=== PATIENT | male | born 1950 | race Two or more races ===

== ENCOUNTER 2024-03-23 12:56 | Outpatient (REF) | payer MEDICARE, MEDICAID, SELFPAY ==
--- NOTE | ~2024-03-23 | XR_ITS ---
EXAMINATION: XR CHEST CLINICAL INFORMATION: Productive cough. Blood tinged sputum. COMPARISON: 05/25/2019 TECHNIQUE: 2 views of the chest were obtained. FINDINGS: The lungs remain hyperexpanded. Biapical scarring. There is large right perihilar masslike consolidation not present on the previous study. No pleural effusion. Cardiac silhouette is unchanged. XR/XR chest 2V IMPRESSION: Large right perihilar masslike consolidation not present on the previous study. Findings are suspicious for neoplasm. Chest CT with contrast is recommended for further characterization.
== END 2024-03-23 12:57 | disposition home or self-care (01) ==
LOC: HO.HHCX 12:56
PROVIDERS: Visit Provider Nurse Practitioner Family
DX: J45.901 Unspecified asthma with (acute) exacerbation (principal); J41.1 Mucopurulent chronic bronchitis
CPT/HCPCS: 71046

== ENCOUNTER 2024-03-30 13:09 | Outpatient (REF) | payer MEDICARE, SELFPAY ==
[2024-03-30 16:08] LABS: Basophils Absolute Auto 0.1 X10*3/uL (0.0-0.2); Basophils Percent Auto 0.3 % (0-2); Hematocrit 29.9 % (42.0-52.0); Hemoglobin 9.6 g/dl (14.0-18.0); Imm Gran Abs Auto 0.49 X10*3/uL (0.00-0.03); Imm Gran Pct Auto 1.4 % (0.0-0.4); Lymphocytes Absolute Auto 1.3 X10*3/uL (1.2-4.9); Lymphocytes Percent Auto 3.9 % (20-40); MANUAL DIFF FLAG SCAN; Mean Corpuscular HGB Conc 32.1 g/dl (31.0-36.0); Mean Corpuscular Hemoglobin 29.5 pg (27.0-33.0); Mean Platelet Volume 8.9 fL (9.4-12.4); Monocytes Absolute Auto 1.5 X10*3/uL (0.1-1.2); Monocytes Percent Auto 4.3 % (2-11); Neutrophils Absolute Auto 30.7 x10*3/uL (2.0-8.3); Neutrophils Percent Auto 90.1 % (45-73); Platelet Count 555 X10*3/uL (160-400); Red Blood Count 3.25 X10*6/uL (4.60-5.80); Red Cell Distribution Width 13.8 % (11.0-16.0); SCAN SMEAR FLAG 1
[2024-03-30 16:24] LABS: Alanine Aminotransferase 32 U/L (0-40); Albumin Level 2.8 g/dL (3.5-5.0); Alkaline Phosphatase 56 U/L (39-117); Anion Gap 18 (12-20); Aspartate Amino Transferase 30 U/L (5-37); Blood Urea Nitrogen 24 mg/dL (9-16); Calcium 8.7 mg/dL (8.4-10.2); Carbon Dioxide 25 mmol/L (22-29); Chloride 98 mmol/L (96-108); Estimated Glomerular Filt Rate > 60; Glucose Random 195 mg/dL (60-115); Potassium 3.8 mmol/L (3.3-5.1); Sodium 137 mmol/L (135-145); Total Protein 6.5 g/dL (6.5-8.0)
[2024-03-30 16:31] LABS: White Blood Count 34.1 X10*3/uL (4.8-10.8)
[2024-03-30 16:48] LABS: SLIDE REVIEW VERIFIED
[2024-03-30 16:55] LABS: Prostate Specific Antigen 12.83 ng/mL (<0.05-4.0)
== END 2024-03-30 13:10 | disposition home or self-care (01) ==
LOC: HO.HHCL 13:09
PROVIDERS: Visit Provider Internal Medicine Geriatric Medicine
DX: Z13.89 Encounter for screening for other disorder (principal)
CPT/HCPCS: 36415; 80053; 84153; 85025

== ENCOUNTER 2024-03-30 17:39 | Inpatient (IN) | payer MEDICARE, MEDICAID, SELFPAY ==
--- NOTE | ~2024-03-30 | XR_ITS ---
EXAMINATION: XR CHEST CLINICAL INFORMATION: Pneumonia. COMPARISON: 04/04/2024, CT 03/30/2024, chest 03/23/2000. TECHNIQUE: Frontal view of the chest was obtained. FINDINGS: There is no gross pneumothorax. Persistent asymmetric right apical pleural thickening. Heart size is normal. Persistent small right pleural effusion. Persistent patchy opacities in the right lung, predominantly in the right perihilar region and [id number] right lung. There may be a few patchy opacities in the left perihilar region. XR/XR chest 1V IMPRESSION: 1. Persistent, similar patchy opacities in the right lung, predominantly in the right perihilar region and [id number] right lung. There may be a few patchy opacities in the left perihilar region. 2. Persistent, similar small right pleural effusion. This study was presented today April 06, 2024 for interpretation. Stat results provided at this time as requested by referring provider.
--- NOTE | ~2024-03-30 | CT_ITS ---
EXAMINATION: CT CHEST WITH CONTRAST CLINICAL INFORMATION: Lung mass on prior chest radiograph COMPARISON: Chest radiograph 03/23/2024 TECHNIQUE: Multidetector volumetric CT imaging of the chest was obtained after the administration of 65 mL of Omnipaque 350 intravenous contrast without immediate adverse reactions. Axial MIP volume rendering provided. Sagittal and coronal reformatted images were obtained. This CT examination was performed using dose optimization techniques as appropriate, variously including the following: *Automated exposure control *Adjustment of mA and/or kV according to patient size (this includes techniques or standardized protocols for targeted exams where dose is matched to indication/reason for exam; i.e. extremities or head) *Use of iterative reconstruction technique DLP: 201 mGy-cm FINDINGS: LUNGS: Marked emphysematous changes are present throughout the lungs. Marked subpleural cystic changes are seen predominantly in the upper lobes there is one area of cyst thickening in the left upper lobe anteriorly (5:152). There are large multifocal areas of consolidation seen in the right lower lobe with associated marked bronchial thickening. There is cavitary area seen posterolaterally measuring 2.8 2.7 x 3 0.1 mL (5:241 and 7:78). Number of smaller nodular densities are seen including some tree-in-bud opacities. There is an area of masslike infiltrate present in the left upper lobe measuring 1.6 x 0.7 x 1.2 cm (5:181 and 6:27). Scattered pulmonary nodules are seen some related to bronchial is mucosal mucoid impaction with the largest nodule measuring 1 cm in the right middle lobe anterior to the major fissure (5:270 and 7:84). MEDIASTINUM: There is a large precarinal lymph node present measuring 3.0 x 2.1 x 3.7 cm (3:24 and 7:61). Some other smaller perihilar lymph nodes are present. There is encasement of the right mainstem bronchus by abnormal soft tissue mass measuring 4.2 x 2.2 x 2.0 cm (3:28 and 6:48). Marked coronary calcium is present. PLEURA: There is no pleural effusion. No pleural mass or thickening. AXILLA: No lymphadenopathy. UPPER ABDOMEN: A large right extrarenal pelvis is partially imaged. No adrenal masses are seen. No evidence of hepatic metastases. OSSEOUS STRUCTURES: No evidence of bony metastatic disease. CT/CT chest w IV con IMPRESSION: 1. Marked emphysematous changes with soft tissue mass encasing the right mainstem bronchus with associated mediastinal and hilar lymph nodes. There are associated multifocal areas of consolidation in the right lower lobe with associated bronchial thickening and a cavitary area. There is also a masslike area of infiltrate in the left upper lobe. Findings are worrisome for malignancy as well as infection. Pulmonary consultation and bronchoscopy recommended. 2. Other incidental findings as described above. Fleischner guidelines were followed. This critical result was discussed with Dr Sanon at 9:30 PM on the evening of the exam and it was ascertained that the content and urgency of the report was understood at the time of direct communication.
--- NOTE | ~2024-03-30 | XR_ITS ---
EXAMINATION: XR CHEST CLINICAL INFORMATION: Pneumonia. COMPARISON: CT 03/30/2024, chest 03/23/2024. TECHNIQUE: 3 views of the chest were obtained. FINDINGS: The lungs remain hyperinflated with biapical pleural thickening, greater on the right. Heart size is normal. Increased patchy and hazy opacities in the right perihilar and infrahilar region with volume loss in the right hemithorax. Small right pleural effusion. Increased tenting and irregularity of the right hemidiaphragm with mild asymmetric elevation. There is no gross pneumothorax. Mild degenerative changes in the thoracic spine. XR/XR chest 2V IMPRESSION: Increased patchy and hazy opacities in the right perihilar and infrahilar region with volume loss in the right hemithorax. Small right pleural effusion. This study was presented today April 06, 2024 for interpretation. Stat results provided at this time as requested by referring provider.
--- NOTE | 2024-03-30 18:00 | ED_ITS ---
HPI - General Adult General Chief complaint: Recheck/Abnormal Lab/Rx Stated complaint: needs antibiotics Time Seen by Provider: 03/30/24 18:27 History of Present Illness ED Provider: Talita LARA narrative: The patient is a 73-year-old male who was recently seen at the [facility] because he has had a 20 lb unintentional weight loss over the last several months. He has had coughing and occasional hemoptysis as well. He had an outpatient chest x-ray 1 week ago that showed a right lung mass concerning for a possible malignancy. Today he [place] [address], hemoglobin of 9.6, a platelet count of 555. He had a PSA of 12.8. The patient was advised to come to the emergency room by his primary care doctor after his abnormal white count was reviewed today. The patient says that he has had a weight loss and occasional coughing. He has been sleeping poorly. He does not think he has had a fever. No abdominal pain, nausea, vomiting. The patient says that he had been coughing up blood-tinged sputum quite a lot a couple of weeks ago. However over the last several days the amount of blood that seems to be coming up considerably less. He does not feel he is coughing up much blood currently. The patient stopped smoking approximately 2 weeks ago. He has been a smoker most of his adult life. Related Data Allergies Allergy/AdvReac Type Severity Reaction Status Date / Time No Known Allergies Allergy Verified 03/30/24 18:06 Review of Systems 2 Review of Systems: Yes all other systems are reviewed and are negative [facility] Social History Social History Smoked in Last 30 Days: Yes Advance Directives: No Advance Directives Information Provided: No Do you have a plan to hurt others: No Plan Physical Exam ED Vital Signs: Vital Signs - 24 hr 03/30/24 18:05 Temperature 98.4 F Pulse Rate 87 Respiratory Rate 18 Blood Pressure 120/47 L Pulse Oximetry 94 Oxygen Delivery Method Room Air BMI result Body Mass Index 19.9 Const Other: The patient is a slim 73-year-old man who was awake and alert. He has a frail appearance. He does not look obviously acutely ill however. No respiratory distress. HENMT Other: Face is symmetrical. Mucous membranes moist. Eyes Other: Pupils are round equal, conjunctivae are clear Neck Other: No cervical adenopathy, no JVD Resp Effort & Inspection: normal respiratory effort Auscultation: clear to auscultation bilaterally Cardio Rate: regular rate Rhythm: regular rhythm Heart sounds: S1 normal heart sound present and S2 normal heart sound present GI Other: Abdomen is soft and nontender, no masses Skin Other: The skin is dry and unremarkable Neuro Other: The patient is awake and alert with a normal mental status. Cranial nerves are grossly intact. He moves his extremities normally and seems grossly neurologically intact. Extrem Other: No calf swelling or tenderness. Course Course Course Narrative: This is an RME: Additional HPI, ROS, PE not included below will be deferred to primary provider. RME assessment and note performed by: Vijaya Gutiérrez PA-C This is a [id number], with no known medical problems, who presents to the ER today per recommendations from [facility]. He has had 1 month of hemoptysis, 25 lb weight loss. Had outpatient labs today and found to have leukocytosis of 34.1; drop in H&H of 9.6/29.9. Had cxr on 03/23 which showed right perihilar masslike consolidation not present on the previous. He was encarcerated in 1993 and 1994. No hx of homelessness He was born in [place], last traveled in 2000 in [place] Plan: Labs, EKG, further ER eval needed. informed charge nurse to bring pt back Medications Administered Discontinued Medications Generic Name Dose Route Start Last Admin Trade Name Freq PRN Reason Stop Dose Admin Sodium Chloride 1,000 mls @ 999 mls/hr 03/30/24 18:45 03/30/24 20:48 Ns IV 03/30/24 19:45 Infused .Q1H1M YRN Infusion Iohexol 100 ml 03/30/24 20:24 03/30/24 20:25 Iohexol 350 Mg/Ml 100 Ml Infus..Btl IV 03/30/24 20:25 65 ml ONCE ONE Administration Medical Decision Making Medical Decision Making MDM Narrative: The patient is a 73-year-old male with a long history of smoking who presents with a history of progressive unintentional weight loss over several months associated with episodes of blood-tinged sputum over the last month. He had an outpatient chest x-ray last week that showed significant right lung abnormalities. Today he had outpatient labs that showed a significantly high white count and was referred to the emergency room. He presents today hemodynamically stable and in no respiratory distress. He says that he has exertional dyspnea but no dyspnea at rest. He says he has been coughing up very little in the way of blood in the last several days. He has not had fevers. A CT of the chest shows findings suggestive of a lung malignancy associated with signs of associated infection including a cavitary lesion. I spoke with the reading radiologist who felt that this looks much more like a postobstructive type pneumonia associated with the tumor rather than tuberculosis. The patient will be started on IV antibiotics. Although he has a high white count he is afebrile and not tachycardic. He is hemodynamically stable. His lactate is 1.9. He does not seem to be acutely septic. He has been started on piperacillin/tazobactam and vancomycin. He will be given IV fluids. He will be admitted to the hospitalist service for ongoing care and a pulmonology consult. Lab Data 03/30/24 18:55 03/30/24 18:55 Labs: Lab Results 03/30/24 Range/Units 18:55 WBC 29.5 H (4.8-10.8) X10*3/uL RBC 3.24 L (4.60-5.80) X10*6/uL Hgb 9.6 L (14.0-18.0) g/dl Hct 28.9 L (42.0-52.0) % MCV 89.2 (80.0-98.0) fL MCH 29.6 (27.0-33.0) pg MCHC 33.2 (31.0-36.0) g/dl RDW 13.8 (11.0-16.0) % Plt Count 461 H (160-400) X10*3/uL MPV 8.3 L (9.4-12.4) fL Immature Gran % (Auto) 1.1 H (0.0-0.4) % Neut % (Auto) 87.5 H (45-73) % Lymph % (Auto) 5.8 L (20-40) % [place] % (Auto) 5.5 (2-11) % Eos % (Auto) 0.0 (0-4) % Baso % (Auto) 0.1 (0-2) % Lymph # (Auto) 1.7 (1.2-4.9) X10*3/uL [place] # (Auto) 1.6 H (0.1-1.2) X10*3/uL Eos # (Auto) 0.0 (0.0-0.4) X10*3/uL Baso # (Auto) 0.0 (0.0-0.2) X10*3/uL Abs Immat Gran (auto) 0.31 H (0.00-0.03) X10*3/uL Absolute Neuts (auto) 25.8 H (2.0-8.3) x10*3/uL Absolute Nucleated RBC 0.000 (0.0-0.012) X10*3/uL Nucleated RBC % (auto) 0.0 (0.0-0.2) /100WBC Sodium 137 (135-145) mmol/L Potassium 3.5 (3.3-5.1) mmol/L Chloride 99 (96-108) mmol/L Carbon Dioxide 26 (22-29) mmol/L Anion Gap 16 (12-20) BUN 27 H (9-16) mg/dL Creatinine 1.07 (0.5-1.4) mg/dL Estim Creat Clear Calc 49.3 Estimated GFR > 60 Random Glucose 135 H (60-115) mg/dL Lactic Acid 1.9 (0.5-2.0) mmol/L Calcium 8.7 (8.4-10.2) mg/dL Total Bilirubin 1.0 (0.0-1.0) mg/dL Direct Bilirubin 0.5 (0.0-0.5) mg/dL AST 24 (5-37) U/L ALT 30 (0-40) U/L Alkaline Phosphatase 57 (39-117) U/L Troponin I High Sens 23.6 (<3.5-35.0) ng/L C-Reactive Protein 28.25 H (< or = 0.50) mg/dL Total Protein 6.6 (6.5-8.0) g/dL Albumin 2.9 L (3.5-5.0) g/dL Procalcitonin 0.71 ng/mL Influenza Type A (PCR) NEGATIVE (Negative) Influenza Type B (PCR) NEGATIVE (Negative) RSV RNA Qual (PCR) NEGATIVE (Negative) SARS-CoV-2 RNA (RT-PCR) NEGATIVE (Negative) Independent Interpretation I performed an independent interpretation of an: EKG Interpretation: EKG at 18:35 shows sinus tachycardia with premature supraventricular complexes at 106 beats per minute. No definite acute ischemic changes. Critical Care Time Critical Care Time Critical Care Time: Yes Total Critical Care Time: 35 Attestation: The patient was critically ill with a high probability of imminent or life- threatening deterioration. ?I spent greater than 30 minutes of discontinuous time evaluating the patient, delivering critical care at the bedside, discussing evaluating data with consultants. ?Critical care time does not include time spent performing separately billable procedures or teaching. ?Time spent performing critical care with 35 minutes. Discharge Plan Discharge Patient Disposition: Admitted As Inpatient Print Language: Indonesian
[2024-03-30 18:05] VITALS: BP 120/47; PULSE 87; RESP 18; TEMP 36.9; O2SAT 94; BMI 19.9
--- NOTE | 2024-03-30 18:09 | ECG_ITS ---
Test Reason : SOB Blood Pressure : / mmHG Vent. Rate : 106 BPM Atrial Rate : 122 BPM P-R Int : 138 ms QRS Dur : 090 ms QT Int : 354 ms P-R-T Axes : 081 059 065 degrees QTc Int : 470 ms Sinus tachycardia with Premature supraventricular complexes Nonspecific T wave abnormality Abnormal ECG No previous ECGs available Referred By: Vijaya Gutiérrez Electronically Signed By:Stone Rowley
[2024-03-30 19:03] LABS: Basophils Percent Auto 0.1 % (0-2); Hematocrit 28.9 % (42.0-52.0); Hemoglobin 9.6 g/dl (14.0-18.0); Imm Gran Abs Auto 0.31 X10*3/uL (0.00-0.03); Imm Gran Pct Auto 1.1 % (0.0-0.4); Lymphocytes Absolute Auto 1.7 X10*3/uL (1.2-4.9); Lymphocytes Percent Auto 5.8 % (20-40); MANUAL DIFF FLAG SCAN; Mean Corpuscular HGB Conc 33.2 g/dl (31.0-36.0); Mean Corpuscular Hemoglobin 29.6 pg (27.0-33.0); Mean Corpuscular Volume 89.2 fL (80.0-98.0); Mean Platelet Volume 8.3 fL (9.4-12.4); Monocytes Absolute Auto 1.6 X10*3/uL (0.1-1.2); Monocytes Percent Auto 5.5 % (2-11); Neutrophils Absolute Auto 25.8 x10*3/uL (2.0-8.3); Neutrophils Percent Auto 87.5 % (45-73); Platelet Count 461 X10*3/uL (160-400); Red Blood Count 3.24 X10*6/uL (4.60-5.80); Red Cell Distribution Width 13.8 % (11.0-16.0); SCAN SMEAR FLAG 1; White Blood Count 29.5 X10*3/uL (4.8-10.8)
[2024-03-30 19:12] LABS: Lactic Acid 1.9 mmol/L (0.5-2.0)
[2024-03-30 19:17] LABS: Alanine Aminotransferase 30 U/L (0-40); Albumin Level 2.9 g/dL (3.5-5.0); Alkaline Phosphatase 57 U/L (39-117); Anion Gap 16 (12-20); Aspartate Amino Transferase 24 U/L (5-37); Bilirubin Direct 0.5 mg/dL (0.0-0.5); Blood Urea Nitrogen 27 mg/dL (9-16); Calcium 8.7 mg/dL (8.4-10.2); Carbon Dioxide 26 mmol/L (22-29); Chloride 99 mmol/L (96-108); Creatinine Clr Calc Pharmacy 49.3; Estimated Glomerular Filt Rate > 60; Glucose Random 135 mg/dL (60-115); Potassium 3.5 mmol/L (3.3-5.1); Sodium 137 mmol/L (135-145); Total Protein 6.6 g/dL (6.5-8.0)
[2024-03-30 19:24] LABS: Troponin-I High Sensitivity 23.6 ng/L (<3.5-35.0)
[2024-03-30 19:40] LABS: Influenza A PCR NEGATIVE (Negative); Influenza B PCR NEGATIVE (Negative); Resp Syncy Virus RNA Qual PCR NEGATIVE (Negative); SARS COV2 PCR INHOUSE NEGATIVE (Negative)
[2024-03-30 19:41] LABS: C Reactive Protein 28.25 mg/dL (< or = 0.50)
[2024-03-30] MEDS: 0.9 % Sodium Chloride 1,000 ML 999 ML IV ×2 (19:42→22:32)
[2024-03-30 20:00] VITALS: BP 118/52; PULSE 85; RESP 17; TEMP 37.3; O2SAT 96
[2024-03-30 20:20] LABS: Procalcitonin 0.71 ng/mL
[2024-03-30] MEDS: iohexoL 350 MG/ML 100 ML INFUS..BTL IV (20:25)
[2024-03-30 22:18] VITALS: BP 118/49; PULSE 99; RESP 18; O2SAT 95
[2024-03-30] MEDS: Piperacillin Sodium/Tazobactam 4.5 GM in 0.9 % Sodium Chloride 100 ML IV (22:31)
[2024-03-30] MEDS: vancomycin HCL 1,500 MG in 0.9 % Sodium Chloride 500 ML 333.33 MG IV (22:38)
--- NOTE | 2024-03-30 22:44 | P.HPHOSP_ITS ---
History of Present Illness Date of Service: 03/30/24 Attending physician on admission: Linnea Cox Chief Complaint: Shortness of breath Herman Sprague is a 73 years old man with past medical history significant for hypertension, COPD -not home O2 and hyperlipidemia presents to the emergency department complaining of 1 month history of shortness on breath that is worse on exertion associated with productive cough of blood-tinged sputum. He denies chest pain, headache, sore throat, fevers or chills. He reported weight loss, 20 lb over the last year and very poor appetite. Denied any acute gastrointestinal or genitourinary symptoms. He is a tobacco smoker since age 11, 1 per day -stopped smoking 2 weeks ago. He smokes marijuana as well and drinks alcohol occasionally. Denies illicit drug use. Denies history of TB, IV drug use, STDs, contact with sick people or incarceration as well as recent travel history. In the ED, he was found to have stable vital signs. Blood workup today showed leukocytosis of 34.1, hemoglobin of 9.6 and thrombocytosis of 555 with monocytosis. CRP is 28.93 and normal procalcitonin. There are no significant electrolyte imbalances. Creatinine is 1.07 and BUN 27. Troponin is 23.6. PSAs 12.83. Viral testing for COVID-19, influenza and RSV is negative. He underwent a chest CTA with IV contrast that showed marked emphysematous changes with soft tissue mass encasing the right mainstem bronchus with associated mediastinal and hilar lymph nodes with associated multifocal areas of consolidation in the right lower lobe with associated bronchial thickening and cavitary area, masslike area of infiltrate in the left upper lobe which is worrisome for malignancy as well as infection. ECG showed sinus tachycardia, heart rate 106 bpm with PVCs. ED tx: NS 1 L bolus, Zosyn 4.5 g IV and vancomycin 1.5 mg Review of Systems 2 Review of Systems: All 12 systems were reviewed and normal except as noted in HPI. [facility] Medical History Smoker COPD (chronic obstructive pulmonary disease) Tobacco dependence Hyperlipidemia BPH (benign prostatic hyperplasia) Essential hypertension Social History Household Members: None Housing: Apartment Do you presently have visiting nurse or other home services: No Patient Tobacco Use Status: Former Tobacco user Tobacco use type: Cigarette Smoked in Last 30 Days: Yes Patient Interested in Nicotine Replacement: No Patient Given Instructions on How to Stop Smoking: No Second Hand Smoke Exposure: No Use of substances other than those prescribed or required for medical reasons: No Currently Displaying Signs/Symptoms of Drug Intoxication Withdrawal: No Have you been hit, kicked, punched, or otherwise hurt by someone within the past year? If so, by whom?: No Do you feel safe in your current relationship?: No Current Relationship Is there a partner from a previous relationship who is making you feel unsafe now?: No Are you made to feel afraid or neglected: No Advance Directives: No Advance Directives Information Provided: No Do you have a plan to hurt others: No Plan Recently lost weight without trying: Yes How much weight loss: 14-23 pounds Eating poorly because of decreased appetite: No Nutrition screen score: 4 Nutrition Risks: No Nutritional Risk Poor oral hygiene: No service: No Meds Allergies Allergy/AdvReac Type Severity Reaction Status Date / Time No Known Allergies Allergy Verified 03/30/24 18:06 Active Medications: Current Medications Acetaminophen (Acetaminophen 325 Mg Tablet) 975 mg PO Q6H PRN PRN Reason: Pain, Mild (Pain Scale 1-3), fever or headache Calcium Carbonate (Calcium Carbonate 750 Mg Tab.Chew) 750 mg PO Q4H PRN PRN Reason: Heartburn Vancomycin HCl 1,500 mg/ (Sodium Chloride) 500 mls @ 333.333 mls/hr IV ONCE ONE Stop: 03/30/24 23:13 Last Admin: 03/30/24 22:38 Dose: 333.33 mls/hr Sodium Chloride (Ns) 1,000 mls @ 999 mls/hr IV .Q1H1M YRN Stop: 03/30/24 23:00 Last Admin: 03/30/24 22:32 Dose: 999 mls/hr Piperacillin Sod/Tazobactam (Sod 3.375 gm/ Sodium Chloride) 50 mls @ 100 mls/hr IV Q6H YRN Lactated Ringer's (Lr) 1,000 mls @ 100 mls/hr IVCONT .Q10H YRN Magnesium Hydroxide (Milk Of Magnesia 30 Ml Oral.Susp) 30 ml PO DAILY PRN PRN Reason: Constipation Melatonin (Melatonin 3 Mg Tablet) 6 mg PO BEDTIME PRN PRN Reason: Insomnia Sodium Chloride (0.9 % Sodium Chloride Flush 3 Ml Syringe) 3 ml IVFLUSH QSHIFT [facility] Home Medications ?Medication ?Instructions ?Recorded ?Confirmed ?Last Taken ?Type albuterol sulfate 90 mcg/actuation 2 inh inhalation Q6H PRN dyspnea 03/31/24 03/31/24 Unknown History aerosol inhaler atorvastatin 40 mg tablet 40 mg PO BEDTIME 03/31/24 03/31/24 03/30/24 History fluticasone furoate 100 1 ea inhalation DAILY 03/31/24 03/31/24 Unknown History mcg-vilanterol 25 mcg/dose inhalation powder (Breo Ellipta) Physical Exam 2 Vital Signs and Narrative: Vital Signs: Last Vital Signs Temp 99.2 F 03/30/24 20:00 Pulse 99 03/30/24 22:18 Resp 18 03/30/24 22:18 BP 118/49 L 03/30/24 22:18 Pulse Ox 95 03/30/24 22:18 O2 Del Method Room Air 03/30/24 22:18 BMI result Body Mass Index 19.9 Constitutional - Awake and Alert, No apparent distress. Malnourished. Pleasant. Cooperative. HEENT - PERRL, EOMI. Normal oropharynx. Normal sclerae. Moist oral mucosa. Heart - RRR, extra beats, no murmurs. Lungs - Normal lung expansion, Normal respiratory effort, No respiratory distress. Occasional end expiratory wheezes. No rhonchi. No crackles. Abdomen - NT / ND; +BS; No rebound or guarding Extremities - no calf tenderness bilaterally, no swelling Skin - Warm/Dry Neurological - Alert & oriented x3. No focal weakness grossly noted. Normal speech. Psychological - Appropriate affect Results Labs 04/01/24 05:35 04/01/24 05:35 Labs: Laboratory Results - last 24 hr 03/30/24 18:55 MCV 89.2 MCH 29.6 MCHC 33.2 RDW 13.8 Plt Count 461 H MPV 8.3 L Immature Gran % (Auto) 1.1 H Neut % (Auto) 87.5 H Lymph % (Auto) 5.8 L [place] % (Auto) 5.5 Eos % (Auto) 0.0 Baso % (Auto) 0.1 Lymph # (Auto) 1.7 [place] # (Auto) 1.6 H Eos # (Auto) 0.0 Baso # (Auto) 0.0 Abs Immat Gran (auto) 0.31 H Absolute Neuts (auto) 25.8 H Absolute Nucleated RBC 0.000 Nucleated RBC % (auto) 0.0 Anion Gap 16 Estim Creat Clear Calc 49.3 Estimated GFR > 60 Random Glucose 135 H Lactic Acid 1.9 Calcium 8.7 Total Bilirubin 1.0 Direct Bilirubin 0.5 AST 24 ALT 30 Alkaline Phosphatase 57 Troponin I High Sens 23.6 C-Reactive Protein 28.25 H Total Protein 6.6 Albumin 2.9 L Procalcitonin 0.71 Influenza Type A (PCR) NEGATIVE Influenza Type B (PCR) NEGATIVE RSV RNA Qual (PCR) NEGATIVE SARS-CoV-2 RNA (RT-PCR) NEGATIVE Imaging Radiologist's Impressions: Impressions Chest CT 03/30/24 20:27 IMPRESSION: 1. Marked emphysematous changes with soft tissue mass encasing the right mainstem bronchus with associated mediastinal and hilar lymph nodes. There are associated multifocal areas of consolidation in the right lower lobe with associated bronchial thickening and a cavitary area. There is also a masslike area of infiltrate in the left upper lobe. Findings are worrisome for malignancy as well as infection. Pulmonary consultation and bronchoscopy recommended. 2. Other incidental findings as described above. Fleischner guidelines were followed. This critical result was discussed with Dr Sanon at 9:30 PM on the evening of the exam and it was ascertained that the content and urgency of the report was understood at the time of direct communication. Assessment and Plan (1) Weight loss: Status: Acute (2) Cavitating mass in right lower lung lobe: Status: Acute (3) Pneumonia involving right lung: Qualifiers: Lung location: lower lobe of lung Pneumonia type: due to unspecified organism Qualified Code(s): J18.9 - Pneumonia, unspecified organism Status: Acute Plan Herman Sprague is a 73 y/o man admitted with: * Exertional shortness of breath and hemoptysis likely secondary to right lower lobe consolidations associated with bronchial thickening and a cavitary area + left upper lobe masslike area/infiltrate concerning for malignancy and/or postobstructive pneumonia or abscesses.. Admit to hospitalist service. Pulse oximetry. Airborne precautions. Continue empiric IV antibiotic therapy with Zosyn. Bronchodilator therapy as needed/inhalers. Check sputum cultures, AFB X3 (however, low suspiction for TB) and HIV. Check TTE to assess for endocarditis. Swallow eval. Hold aspirin. Pulmonology and ID consults. * Leukocytosis likely secondary to above. Continue empiric IV antibiotic therapy and IV fluids. Blood cultures X2 obtained. Will follow results. * COPD. Not in acute exacerbation. Supplemental oxygen and/or bronchodilator therapy as needed. * Tobacco dependence. Last time he smoked was 2 weeks ago. Tobacco cessation education. * Elevated PSA. Check urinalysis. Urology consult. * Hyperlipidemia. Continue atorvastatin. * Essential hypertension. Continue lisinopril, amlodipine and metoprolol. * BPH. Continue tamsulosin. * Protein calorie malnutrition. BMI 19.9 kg/m2. Dietary consult. DVT prophylaxis: SCDs only (pt c/o hemoptysis). Code status: Full Patient will need hospitalization for at least 2 midnights for hemoptysis, pneumonia and suspected malignancy management and treatment with IV antibiotic therapy, close monitoring of vital signs, further blood/sputum workup and evaluation by subspecialty for possible bronchoscopy. Quality Stroke Does the patient have a stroke diagnosis?: No VTE Prior VTE?: No VTE Risk Level:: Medical - moderate - high VTE Device Contraindication: N/A - Device Ordered VTE Drug Contraindication: Treatment Not Indicated
[2024-03-31] VITALS (10 sets, daily range): BP systolic 111–158; BP diastolic 50–63; PULSE 68–99; RESP 16–19; TEMP 36.1–37.8; O2SAT 92–96; BMI 20.7
[2024-03-31] MEDS: Lactated Ringers 1,000 ML 100 ML IVCONT ×2 (00:34→12:13)
[2024-03-31] MEDS: Acetaminophen 325 MG TABLET 975 MG PO (02:25)
[2024-03-31] MEDS: Piperacillin Sodium/Tazobactam 3.375 GM in 0.9 % Sodium Chloride 50 ML IV ×3 (05:34→18:14)
[2024-03-31 06:13] LABS: Hematocrit 26.3 % (42.0-52.0); Hemoglobin 8.8 g/dl (14.0-18.0); Mean Corpuscular HGB Conc 33.5 g/dl (31.0-36.0); Mean Corpuscular Hemoglobin 30.1 pg (27.0-33.0); Mean Corpuscular Volume 90.1 fL (80.0-98.0); Mean Platelet Volume 8.9 fL (9.4-12.4); Platelet Count 415 X10*3/uL (160-400); Red Blood Count 2.92 X10*6/uL (4.60-5.80); Red Cell Distribution Width 13.9 % (11.0-16.0); White Blood Count 27.8 X10*3/uL (4.8-10.8)
[2024-03-31 06:33] LABS: B Type Natriuretic Peptide 207 pg/mL (<100)
--- NOTE | 2024-03-31 07:00 | CA_ITS ---
Transthoracic Echocardiogram Patient (Last, First, Middle): Herman Sprague, Gender: Male Date of : 1950 Age: 73 Procedure Date: 03/31/2024 Procedure Type: Transthoracic Echocardiogram Location: S3W Height: 170.18 cm Weight: 59.88 kg BSA: 1.69 m2 Heart Rate: bpm BP: 158 / 61 mmHg Top Trimmer: ALONSO Referring MD: Linnea Cox MD Symptoms: RLL multiple consolidation, assess for endocarditi Study Quality: Adequate Conclusions: - Normal left ventricular size, thickness, systolic function, and wall motion. The visually estimated ejection fraction is between 60-65%. Diastolic function is indeterminate on the basis of available data. - Normal right ventricular cavity size and systolic function. - No significant valvular pathology noted. Findings Left Ventricle Normal left ventricular size, thickness, systolic function, and wall motion. The visually estimated ejection fraction is between 60-65%. Diastolic function is indeterminate on the basis of available data. Right Ventricle Normal right ventricular cavity size and systolic function. Atria The left atrium is mildly dilated. Aortic Valve There is a normal trileaflet aortic valve. There is mild calcification of the aortic valve. There is no aortic valve stenosis. There is no aortic valve regurgitation. Mitral Valve Normal mitral valve structure and function. There is no mitral valve regurgitation. There is no mitral valve stenosis. Pulmonic Valve The pulmonic valve is normal. There is no pulmonic valve regurgitation. Tricuspid Valve Normal tricuspid valve structure. There is trace tricuspid valve regurgitation. Normal right atrial pressure. There is no evidence of pulmonary hypertension. Great Vessels All visible segments of the aorta are normal in size. The visualized portions of the pulmonary artery and branches are normal. Venous The inferior vena cava is normal in size and collapses greater than 50% with inspiration. Pericardium/Pleural There is no evidence of pericardial effusion. Prior Study Comparison No prior study available for comparison. Measurements 2D Linear Measurements IVSd: 1.00 0.6-0.9/0.6-1.0 cm LVIDd: 4.46 3.9-5.3/4.2-5.9 cm LVIDd Index: 2.64 2.4-3.2/2.2-3.1 cm/m2 LVIDs: 2.97 2.0-3.6 cm LVPWd: 0.97 0.7-1.1 cm LA Diam: 3.10 2.7-3.8/3.0-4.0 cm LAIDs Index: 1.83 1.5-2.3 cm/m2 LV Mass: 184.35 67-162/88-224 g LV Mass Index: 109.08 43-95/49-115 g/m2 LVOT Diam: 2.20 3.0+(-)1.3 cm 2D Systolic Function EF 4C: 61.60 >55% EF 2C: 59.30 >55% EF BiP: 61.20 >55% Mitral Valve MV Pk E: 0.87 MV PK A: 0.94 MV Decel Time: 269.00 E/A: 0.90 E'Lateral: 11.10 E'Medial: 6.64 E/E' Med: 13.10 E/E' Lat: 7.90 PHT: 79.00 MVA PHT: 2.78 Decel Polk: 3.25 Aortic Valve AoV Pk Darrin: 1.37 AoV Mn Darrin: 0.93 AoV VTI: 0.24 AoV Pk Grad: 8.00 Aov Mn Grad: 4.00 MIGUEL ANGEL Cont.VTI: 2.81 LVOT LVOT Pk Darrin: 1.10 LVOT Mn Darrin: 0.73 LVOT VTI: 0.18 LVOT Pk Grad: 5.00 LVOT Mn Grad: 3.00 LVOT Diam: 2.20 LVOT Area: 3.80 Diastolic Function MV Pk E: 0.87 MV Pk A: 0.94 E/A: 0.90 E'Medial: 6.64 E/E' Med: 13.10 E' Laterial: 11.10 E/E' Lat: 7.90 Right Ventricle TAPSE (mm): 21.70 TVS' Darrin: 15.30 Tricuspid Valve TR Pk Darrin: 2.00 TR Pk Grad: 16.00 RA Press: 3.00 RVSP: 19.00 Great Vessels Aorta Sinus of Valsalva: 3.30 2.0-3.5 cm Ao Asc: 3.30 2.1-3.4 cm Pulmonary Valve PV Pk Darrin: 1.19 Peak PV Grad: 6.00 Updated in Other Vendor System with Status of Final Stone Rowley MD electronically signed on 04/02/2024 2:31:18 PM with status of Final
[2024-03-31 07:13] LABS: Anion Gap 11 (12-20); Blood Urea Nitrogen 23 mg/dL (9-16); Carbon Dioxide 24 mmol/L (22-29); Chloride 106 mmol/L (96-108); Creatinine Clr Calc Pharmacy 64.8; Estimated Glomerular Filt Rate > 60; Glucose Random 125 mg/dL (60-115); Sodium 138 mmol/L (135-145)
[2024-03-31 07:21] LABS: Appearance Urine Clear; Color Urine Yellow; Glucose Urine UA Negative (Negative); Leukocyte Esterase Urine Negative (Negative); Nitrite Urine Negative (Negative); PH 5.5 (5.0-9.0); Specific Gravity - Urine >= 1.030 (1.005-1.025); Urine Blood Negative (Negative); Urine Ketones Negative (Negative); Urine Protein Trace mg/dL (Neg-Trace)
[2024-03-31 07:30] LABS: Potassium 2.9 mmol/L (3.3-5.1)
[2024-03-31] MEDS: Sodium Chloride 3 % Inhalation 15 ML VIAL.NEB INHALE (08:18)
--- NOTE | 2024-03-31 08:45 | PC.RT ---
Induced sputum collected post 4ml 3% hypertonic saline svn via mouth piece. The sample was obtained in a sterile container, pneumonic, date and time of collection done on each label. RN recieved sample in biohazard bag @ 1094.
--- NOTE | 2024-03-31 09:18 | P.CONPL_ITS ---
History of Present Illness History of Present Illness Consult date: 03/31/24 Reason for consult: dyspnea, cough, COPD and pneumonia Chief complaint: Cavitary lesion, post- obstructive pneumonia Narrative: This 73 years old gentleman, Turkish-speaking, is admitted since last night, through the emergency room, with history of cough and shortness of breath on exertion, for about a month. He denies fever, chills or any chest pain, He has had blood-tinged sputum in the last few days. He has lost about 20 lb of weight recently. He denies exposure to any sick % lately, also denies of recent travels . This patient apparently does have history of chronic obstructive pulmonary disease but not sure what medications was he uses. HISTORY OF SMOKING SINCE AGE 11, 1 PACK OF CIGARETTES A DAY, AND CLAIMS THAT HE QUIT 2 WEEKS AGO. HISTORY OF SMOKING MARIJUANA OFF AND ON AND ALSO OF DRINKING ALCOHOL OCCASIONALLY. DENIES USE OF ILLICIT DRUGS. Review of Systems 2 Review of Systems: Review of systems basically includes the cough shortness of breath recent weight loss as noted in HPI [facility] Past Medical History Medical History (Updated 03/31/24 @ 09:28 by Natalee Michaud MD) Smoker COPD (chronic obstructive pulmonary disease) Tobacco dependence Hyperlipidemia BPH (benign prostatic hyperplasia) Essential hypertension Social History Social History Household Members: None Housing: Apartment Do you presently have visiting nurse or other home services: No Patient Tobacco Use Status: Former Tobacco user Tobacco use type: Cigarette Smoked in Last 30 Days: Yes Patient Interested in Nicotine Replacement: No Patient Given Instructions on How to Stop Smoking: No Second Hand Smoke Exposure: No Use of substances other than those prescribed or required for medical reasons: No Have you been hit, kicked, punched, or otherwise hurt by someone within the past year? If so, by whom?: No Do you feel safe in your current relationship?: No Current Relationship Is there a partner from a previous relationship who is making you feel unsafe now?: No Are you made to feel afraid or neglected: No Advance Directives: No Advance Directives Information Provided: No Do you have a plan to hurt others: No Plan Recently lost weight without trying: Yes How much weight loss: 14-23 pounds Eating poorly because of decreased appetite: No Nutrition screen score: 4 Nutrition Risks: No Nutritional Risk Poor oral hygiene: No Meds Allergies Allergy/AdvReac Type Severity Reaction Status Date / Time No Known Allergies Allergy Verified 03/30/24 18:06 Active Medications: Current Medications Acetaminophen (Acetaminophen 325 Mg Tablet) 975 mg PO Q6H PRN PRN Reason: Pain, Mild (Pain Scale 1-3), fever or headache Last Admin: 03/31/24 02:25 Dose: 975 mg Albuterol Sulfate (Albuterol Sulfate (0.083%) 2.5 Mg/3 Ml Vial.Neb) 2.5 mg INHALE Q3H PRN PRN Reason: Shortness of Breath/Wheezing Calcium Carbonate (Calcium Carbonate 750 Mg Tab.Chew) 750 mg PO Q4H PRN PRN Reason: Heartburn Guaifenesin (Guaifenesin 200 Mg/10 Ml 10 Ml Liquid) 10 ml PO Q6H PRN PRN Reason: Cough Piperacillin Sod/Tazobactam (Sod 3.375 gm/ Sodium Chloride) 50 mls @ 100 mls/hr IV Q6H [facility] Last Infusion: 03/31/24 06:05 Dose: Infused Lactated Ringer's (Lr) 1,000 mls @ 100 mls/hr IVCONT .Q10H [facility] Last Admin: 03/31/24 00:34 Dose: 100 mls/hr Magnesium Hydroxide (Milk Of Magnesia 30 Ml Oral.Susp) 30 ml PO DAILY PRN PRN Reason: Constipation Melatonin (Melatonin 3 Mg Tablet) 6 mg PO BEDTIME PRN PRN Reason: Insomnia Sodium Chloride (0.9 % Sodium Chloride Flush 3 Ml Syringe) 3 ml IVFLUSH QSHIFT [facility] Last Admin: 03/31/24 07:12 Dose: Not Given Physical Exam 2 Vital Signs: Vital Signs: Last Vital Signs Temp 98.0 F 03/31/24 08:00 Pulse 95 03/31/24 08:19 Resp 16 03/31/24 08:19 BP 111/56 L 03/31/24 08:00 Pulse Ox 96 03/31/24 08:00 O2 Del Method Room Air 03/31/24 08:00 BMI result Body Mass Index 20.7 Const: Other: Looks to moderately pale and weak General: comfortable, no acute distress, alert and awake O rientation/consciousness: patient oriented x3 HEENT: Head: Yes normal to inspection General nose exam: No nasal polyps present and No nasal discharge present Face and sinus: Yes sinuses nontender Mouth: oropharynx normal Throat: Yes posterior oropharynx normal Eyes: General: appearance normal, both eyes and all related structures Neck: Neck: Yes normal visual inspection, Yes no lymphadenopathy, Yes trachea midline and Yes no JVD Thyroid: Thyroid normal Chest: Chest palpation & inspection: normal inspection of the chest, normal palpation of entire chest wall and no tenderness Resp: Other: Percussion note resonant . Breath sounds are distant on both sides No wheezes, the few inspiratory Creps over the right lower lobe. Cardio: Palpation: normal PMI Rate: regular rate Rhythm: regular rhythm Heart sounds: no gallops and no murmurs GI: Palpation (GI): Soft to palpation, nontender, No hepatosplenomegaly present and no masses Auscultation: normal bowel sounds Back/Spine/Pelvis: Thoracic/Lumbar Spine: thoracic and lumbar spine normal to inspection Skin: General skin exam: no rashes or lesions noted Neuro: General: patient oriented x3 and no focal motor deficits Cranial nerves: Yes CN's II-XII intact bilaterally Extrem: General: Yes normal to inspection, Yes no clubbing, cyanosis or edema and Yes no calf tenderness Psych: Appearance: grossly normal Speech and movement: Normal speech and movement present Results Laboratory Findings 03/31/24 05:03 03/31/24 05:03 Abnormal lab findings: Abnormal Labs Significant leukocytosis, moderate degree of anemia, and hypokalemia are noted 03/30/24 03/31/24 03/31/24 18:55 05:03 06:20 WBC 29.5 H 27.8 H RBC 3.24 L 2.92 L Hgb 9.6 L 8.8 L Hct 28.9 L 26.3 L Plt Count 461 H 415 H MPV 8.3 L 8.9 L Immature Gran % (Auto) 1.1 H Neut % (Auto) 87.5 H Lymph % (Auto) 5.8 L [place] # (Auto) 1.6 H Abs Immat Gran (auto) 0.31 H Absolute Neuts (auto) 25.8 H Potassium 2.9 L* Anion Gap 11 L BUN 27 H 23 H Random Glucose 135 H 125 H Calcium 8.0 L D C-Reactive Protein 28.25 H B-Natriuretic Peptide 207 H Albumin 2.9 L significant leukocytosis Ur Specific [place] >= 1.030 H Diagnostic Findings Chest x-ray: report reviewed and image reviewed CT scan - chest: report reviewed and image reviewed Assessment and Plan (1) Pneumonia involving right lung: Qualifiers: Lung location: lower lobe of lung Pneumonia type: due to unspecified organism Qualified Code(s): J18.9 - Pneumonia, unspecified organism Status: Acute (2) Cavitating mass in right lower lung lobe: Status: Acute (3) Weight loss: Status: Acute (4) Smoker: Status: Acute (5) COPD (chronic obstructive pulmonary disease): Status: Acute Plan This gentleman with longstanding history of smoking, presents with cavitary pneumonia in right lower lobe, his soft tissue mass around the right mainstem bronchus, Also is small area of infiltrate with possible cavitation in the left upper lobe. Possibilities include infectious pneumonia, pulmonary tuberculosis, neoplastic process. [place] : Agree with the current workup in progress. Sputum for AFB smears and culture as well as T spot ./ Infectious Disease consult. Continue on Piperacillin sodium, as advised by ID lean process deployment consultant. Also add sputum for cytology. Will make tentative plans for bronchoscopy, unless there is significant response to treatment over the next few days. Procedures Date of Service Date of Service: 03/31/24
[2024-03-31] MEDS: Sodium Chloride 3 % Inhalation 4 ML VIAL.NEB INHALE (09:33)
--- NOTE | 2024-03-31 10:01 | PHA.MEDREC ---
Pharmacy Consult ? Medication Reconciliation Pharmacy has completed the medication reconciliation. Spoke with patient with help of tea tree farm worker. Patient was asked what medications he is taking at home and according to him as of yesterday 03/30/2024 the doctor took him off all his medications except the Atorvastatin 40mg for High Cholesterol and a stomach pill he cannot remember the name of. Looking in claims as of yesterday 03/30 he had a metoprolol script filled and when I asked him about that he was very admit that he is not taking any other medications but the High Cholesterol and the Stomach pill now.
--- NOTE | 2024-03-31 10:05 | PHA.MEDREC ---
Pharmacy Consult ? Medication Reconciliation Pharmacy has completed the medication reconciliation.Spoke with patient with help of blade sharpener. Patient was asked what medications he is taking at home and according to him he has two ihalers the albuterol and Breo elipta which he uses as needed and as of yesterday 03/30/2024 the doctor took him off all his medications except the Atorvastatin 40mg for High Cholesterol and a stomach pill he cannot remember the name of. Looking in claims as of yester03/30 he had a metoprolol script filled and when I asked him about that he was very admit that he is not taking any other medications but the High Cholesterol and the Stomach pill now and the inhalers when needed.
--- NOTE | 2024-03-31 11:51 | MHC.CLN ---
RE: CONSULT PT WITH MODERATELY MALNOURISHED-NON SEVERE MALNUTRITION IN THE CONTEXT OF CHRONIC ILLNESS PT WITH MILDLY DEPLETED SUBCUTANEOUS FAT AND MUSCLE MASS WITH 13% NON SIGNIFCAINT WT LOSS X1 YEAR WITH CHRONIC POOR PO INTAKE PT REPORTED 20# WT LOSS X1 YEAR; NO PREVIOUS WT HX IN eMAR DIET RX: CARDIAC -RECOMMEND CHANGE DIET TO REGULAR RECOMMEND ADDING ENSURE BID TO INCREASE KCALS SUPP TO PROVIDE 700KCALS, 40G PROTEIN MONITOR PO INTAKE AND ENCOURAGE SUPPLEMENT
--- NOTE | 2024-03-31 12:05 | MHC.SL.SWA ---
Speech Pathologist Impression: Risk of Aspiration Due to: History of Pneumonia Dysphasia Diet Status: Mild oral phase dysphagia. Recommend Chopped/Advanced (NDD3) with Thin liquids, pills whole with liquid Liquid Consistency and Strategies for Safe Swallow: Liquid Intake Recommendation: Thin Liquid Intake Strategies: Small Sips Solid Food Consistency: Dietary Recommendations: Chopped/Advanced (NDD3) Additional Modifications to Solid Foods: Add sauces and gravies, blend in. Alternate liquids and solids. Liquids by straw o.k. Oral Medication Intake: Whole with Liquid Please contact the pharmacy regarding appropriate crushable or liquid drug formulations that are available whenever modified delivery is recommended. Compensatory Strategies and Precautions to be Taken for Safe Swallow: Sitting Upright (90 deg) Small Bites and Sips Alternate Liquids/Solids Supervision While Eating and Drinking for Safe Swallow: None Needed Foods to Avoid: Hard, difficulty to chew solids; dry, crusty or crunchy textures. Swallowing Recommended Treatments: Compens. Strategy Educat. Recommendation for Speech: Inpatient Speech Therapy Comment: Patient presents with mild oral phase dysphagia secondary to minimal dentition. Patient did present with mildly irregularity to pharyngeal swallow, as hyoid remained fixed and laryngeal transit was mildly decreased, however there was no evidence of clinical signs of aspiration on any texture presented today. Patient reports that he generally eats a softer diet due to dentition issues. Recommend DOWNGRADE diet to Chopped/Advanced (NDD3) continue with thin liquids, pills whole with liquid. TIMBER SETTER to f/u X1 for toleration of recommended diet. Patient can be independent in his feeding. [employer] [employer] notified by secure text, RN in person. Frequency/Duration: Date Range for Service Req: Timeline to reassess: Fabric Pattern Grader Clinican/Clinical Fellow: No Supervisory Statement: I have reviewed and agree with the student/clinical fellow's documentation: N/A Speech Language Pathologist: Samreen Lee M.A., [facility]-TIMBER SETTER
--- NOTE | 2024-03-31 12:16 | P.PNIM_ITS ---
Subjective Subjective Date of Service: 03/31/24 Review of Systems Follow up shortness of breath, hemoptysis Patient reports feeling better with no shortness a breath today Physical Exam 2 Vital Signs: Vital Signs: Last Vital Signs Temp 98.0 F 03/31/24 08:00 Pulse 95 03/31/24 08:19 Resp 16 03/31/24 08:19 BP 111/56 L 03/31/24 08:00 Pulse Ox 96 03/31/24 08:00 O2 Del Method Room Air 03/31/24 08:00 BMI result Body Mass Index 20.7 Appearing in no acute distress lung sounds are clear to auscultation heart regular rate rhythm, clear S1, S2 positive bowel sounds, abdomen is soft, nontender neuro patient is alert x3, no focal deficits Objective Data Active Medications Acetaminophen (Acetaminophen 325 Mg Tablet) 975 mg PO Q6H PRN PRN Reason: Pain, Mild (Pain Scale 1-3), fever or headache Last Admin: 03/31/24 02:25 Dose: 975 mg Documented By: ARIS Albuterol Sulfate (Albuterol Sulfate (0.083%) 2.5 Mg/3 Ml Vial.Neb) 2.5 mg INHALE Q3H PRN PRN Reason: Shortness of Breath/Wheezing Calcium Carbonate (Calcium Carbonate 750 Mg Tab.Chew) 750 mg PO Q4H PRN PRN Reason: Heartburn Guaifenesin (Guaifenesin 200 Mg/10 Ml 10 Ml Liquid) 10 ml PO Q6H PRN PRN Reason: Cough Piperacillin Sod/Tazobactam (Sod 3.375 gm/ Sodium Chloride) 50 mls @ 100 mls/hr IV Q6H [facility] Last Infusion: 03/31/24 06:05 Dose: Infused Documented By: ARIS Lactated Ringer's (Lr) 1,000 mls @ 100 mls/hr IVCONT .Q10H [facility] Last Admin: 03/31/24 00:34 Dose: 100 mls/hr Documented By: JUAN Magnesium Hydroxide (Milk Of Magnesia 30 Ml Oral.Susp) 30 ml PO DAILY PRN PRN Reason: Constipation Melatonin (Melatonin 3 Mg Tablet) 6 mg PO BEDTIME PRN PRN Reason: Insomnia Sodium Chloride (0.9 % Sodium Chloride Flush 3 Ml Syringe) 3 ml IVFLUSH QSHIFT [facility] Last Admin: 03/31/24 07:12 Dose: Not Given Documented By: CLARKE Non-Admin Reason: IV Running Labs 03/31/24 05:03 03/31/24 05:03 Labs: Laboratory Results - last 24 hr 03/30/24 03/31/24 03/31/24 18:55 05:03 06:20 MCV 89.2 90.1 MCH 29.6 30.1 MCHC 33.2 33.5 RDW 13.8 13.9 Plt Count 461 H 415 H MPV 8.3 L 8.9 L Immature Gran % (Auto) 1.1 H Neut % (Auto) 87.5 H Lymph % (Auto) 5.8 L [place] % (Auto) 5.5 Eos % (Auto) 0.0 Baso % (Auto) 0.1 Lymph # (Auto) 1.7 [place] # (Auto) 1.6 H Eos # (Auto) 0.0 Baso # (Auto) 0.0 Abs Immat Gran (auto) 0.31 H Absolute Neuts (auto) 25.8 H Absolute Nucleated RBC 0.000 0.000 Nucleated RBC % (auto) 0.0 0.0 Anion Gap 16 11 L Estim Creat Clear Calc 49.3 64.8 Estimated GFR > 60 > 60 Random Glucose 135 H 125 H Lactic Acid 1.9 Calcium 8.7 8.0 L D Total Bilirubin 1.0 Direct Bilirubin 0.5 AST 24 ALT 30 Alkaline Phosphatase 57 Troponin I High Sens 23.6 C-Reactive Protein 28.25 H B-Natriuretic Peptide 207 H Total Protein 6.6 Albumin 2.9 L Procalcitonin 0.71 Urine Color Yellow Urine Appearance Clear Urine pH 5.5 Ur Specific [place] >= 1.030 H Urine Protein Trace Urine Glucose (UA) Negative Urine Ketones Negative Urine Blood Negative Urine Nitrite Negative Ur Leukocyte Esterase Negative Influenza Type A (PCR) NEGATIVE Influenza Type B (PCR) NEGATIVE RSV RNA Qual (PCR) NEGATIVE SARS-CoV-2 RNA (RT-PCR) NEGATIVE Assessment and Plan (1) COPD (chronic obstructive pulmonary disease): Status: Acute (2) Cavitating mass in right lower lung lobe: Status: Acute Plan Herman Sprague is a 73 y/o man admitted with Exertional shortness of breath and hemoptysis likely secondary to right lower lobe consolidations associated with bronchial thickening and a cavitary area + left upper lobe masslike area/infiltrate concerning for malignancy and/or postobstructive pneumonia or abscesses. Airborne precautions. Continue empiric IV antibiotic therapy with Zosyn. Bronchodilator therapy as needed/inhalers. Check sputum cultures, AFB X3, tspot (however, low suspiction for TB) and HIV. Check TTE to assess for endocarditis. Hold aspirin. Pulmonology consult> tentative plan for bronchoscopy in the coming days ID consults. Hypokalemia oral and IV replacement Leukocytosis likely secondary to above. Continue empiric IV antibiotic therapy Blood cultures X2 obtained. COPD. Not in acute exacerbation. Supplemental oxygen and/or bronchodilator therapy as needed. Tobacco dependence. Last time he smoked was 2 weeks ago. Tobacco cessation education. Elevated PSA. neg urinalysis. Urology consult. Hyperlipidemia. Continue atorvastatin. Essential hypertension. Continue lisinopril, amlodipine and metoprolol. BPH. Continue tamsulosin. Protein calorie malnutrition. BMI 19.9 kg/m2. Dietary consult>chopped advanced diet DVT prophylaxis: SCDs only (pt c/o hemoptysis). Attending Dr. Welsh Code status: Full Patient will need hospitalization for at least 2 midnights for hemoptysis, pneumonia and suspected malignancy management and treatment with IV antibiotic therapy, close monitoring of vital signs, further blood/sputum workup and evaluation by subspecialty for possible bronchoscopy. Quality Stroke Does the patient have a stroke diagnosis?: No VTE Prior VTE?: No VTE Risk Level:: Medical - moderate - high VTE Device Contraindication: N/A - Device Ordered VTE Drug Contraindication: Treatment Not Indicated
[2024-03-31 13:05] LABS: Estimated Average Glucose 97 mg/dL
[2024-03-31] MEDS: Potassium Chloride ER 20 MEQ TAB.ER.PRT 40 MEQ PO (13:15)
[2024-03-31] MEDS: Potassium Chloride/H20 10 MEQ/100 ML PIGGYBACK 100 MEQ IV (13:16)
--- NOTE | 2024-03-31 13:24 | MHC.CM.PN ---
IMM 03/31/24 Male 73 DX Cavitary lesion post-obstructive PNA. Met with the patient and a wildland fire fighter to interview for the CM assessment. The patient lives by himself. He reports that he is independent with all functional mobility, NO AD. His PCP is Dr Allan Peralta. Hthe patient does not have a HCP. He received education re HCP; but he declined the offer to document one. DP Home self care. His son will provide transportation home.
--- NOTE | 2024-03-31 16:03 | PC.RT ---
Pt awake and coop, justine 3% hypertonic saline x 4 ml well. Pt able to expectorate sputum into sterile cup. Sample was labeled with date, time and pneumonic and handed to nurse.
[2024-03-31] MEDS: Atorvastatin Calcium 40 MG TABLET PO (19:35)
[2024-03-31] MEDS: 0.9 % Sodium Chloride Flush 3 ML SYRINGE IVFLUSH (19:35)
[2024-04-01] MEDS: Piperacillin Sodium/Tazobactam 3.375 GM in 0.9 % Sodium Chloride 50 ML IV ×5 (00:05→23:36)
[2024-04-01] MEDS: Lactated Ringers 1,000 ML 100 ML IVCONT ×2 (00:08→11:16)
[2024-04-01 03:46] VITALS: BP 113/52; PULSE 92; RESP 16; TEMP 36.5; O2SAT 93
[2024-04-01 06:21] LABS: Anion Gap 11 (12-20); Blood Urea Nitrogen 16 mg/dL (9-16); Calcium 7.9 mg/dL (8.4-10.2); Carbon Dioxide 23 mmol/L (22-29); Chloride 106 mmol/L (96-108); Creatinine Clr Calc Pharmacy 82.2; Estimated Glomerular Filt Rate > 60; Glucose Random 127 mg/dL (60-115); Potassium 3.5 mmol/L (3.3-5.1); Sodium 136 mmol/L (135-145)
[2024-04-01 08:19] LABS: Basophils Percent Auto 0.1 % (0-2); Eosinophils Percent Auto 0.2 % (0-4); Hematocrit 23.9 % (42.0-52.0); Hemoglobin 7.8 g/dl (14.0-18.0); Imm Gran Abs Auto 0.25 X10*3/uL (0.00-0.03); Lymphocytes Absolute Auto 1.9 X10*3/uL (1.2-4.9); Lymphocytes Percent Auto 7.3 % (20-40); MANUAL DIFF FLAG SCAN; Mean Corpuscular HGB Conc 32.6 g/dl (31.0-36.0); Mean Corpuscular Hemoglobin 29.9 pg (27.0-33.0); Mean Corpuscular Volume 91.6 fL (80.0-98.0); Monocytes Absolute Auto 1.2 X10*3/uL (0.1-1.2); Monocytes Percent Auto 4.6 % (2-11); Neutrophils Absolute Auto 22.2 x10*3/uL (2.0-8.3); Neutrophils Percent Auto 86.8 % (45-73); Platelet Count 405 X10*3/uL (160-400); Red Blood Count 2.61 X10*6/uL (4.60-5.80); SCAN SMEAR FLAG 1; White Blood Count 25.5 X10*3/uL (4.8-10.8)
[2024-04-01] MEDS: Fluticasone/Vilanterol 100/25 BLST.W.DEV 1 PUFF INHALE (08:37)
[2024-04-01 08:39] VITALS: PULSE 92; RESP 16; O2SAT 96
[2024-04-01 08:41] VITALS: BP 143/60; PULSE 94; RESP 18; TEMP 36.4; O2SAT 94
[2024-04-01 08:41] LABS: SLIDE REVIEW VERIFIED
--- NOTE | 2024-04-01 09:55 | HO.PM.IMPN ---
Subjective Subjective Date of Service: 04/01/24 Interval History: seen and examined this AM with calculation clerk services still coughing denies sob at rest Review of Systems Negative except HPI/interval history. Physical Exam Vital Signs: Vital Signs: Last Vital Signs Temp 97.6 F 04/01/24 08:41 Pulse 94 04/01/24 08:41 Resp 18 04/01/24 08:41 BP 143/60 H 04/01/24 08:41 Pulse Ox 94 04/01/24 08:41 O2 Del Method Room Air 04/01/24 08:41 BMI result Body Mass Index 20.7 Const: Other: General - no acute distress, appears comfortable Cardiovascular - regular rate and rhythm, S1-S2 Lungs - normal respiratory effort Abdomen - soft, nontender, no rebound or guarding Extremities - no edema bilaterally Neuro - awake and alert, no focal deficits Objective Data Active Medications Acetaminophen (Acetaminophen 325 Mg Tablet) 975 mg PO Q6H PRN PRN Reason: Pain, Mild (Pain Scale 1-3), fever or headache Last Admin: 03/31/24 02:25 Dose: 975 mg Documented By: ARIS Albuterol Sulfate (Albuterol Sulfate (0.083%) 2.5 Mg/3 Ml Vial.Neb) 2.5 mg INHALE Q3H PRN PRN Reason: Shortness of Breath/Wheezing Atorvastatin Calcium (Atorvastatin Calcium 40 Mg Tablet) 40 mg PO BEDTIME [facility] Last Admin: 03/31/24 19:35 Dose: 40 mg Documented By: ARIS Calcium Carbonate (Calcium Carbonate 750 Mg Tab.Chew) 750 mg PO Q4H PRN PRN Reason: Heartburn Fluticasone/Vilanterol (Fluticasone/Vilanterol 100/25 Blst.W.Dev) 1 puff INHALE RDAILY [facility] Last Admin: 04/01/24 08:37 Dose: 1 puff Documented By: MARIE Guaifenesin (Guaifenesin 200 Mg/10 Ml 10 Ml Liquid) 10 ml PO Q6H PRN PRN Reason: Cough Piperacillin Sod/Tazobactam (Sod 3.375 gm/ Sodium Chloride) 50 mls @ 100 mls/hr IV Q6H [facility] Last Infusion: 04/01/24 06:32 Dose: Infused Documented By: HO.BOURQC Lactated Ringer's (Lr) 1,000 mls @ 100 mls/hr IVCONT .Q10H [facility] Last Infusion: 04/01/24 00:46 Dose: 100 mls/hr Documented By: ARIS Magnesium Hydroxide (Milk Of Magnesia 30 Ml Oral.Susp) 30 ml PO DAILY PRN PRN Reason: Constipation Melatonin (Melatonin 3 Mg Tablet) 6 mg PO BEDTIME PRN PRN Reason: Insomnia Sodium Chloride (0.9 % Sodium Chloride Flush 3 Ml Syringe) 3 ml IVFLUSH QSHIFT [facility] Last Admin: 04/01/24 07:37 Dose: Not Given Documented By: CLARKE Non-Admin Reason: IV Running Labs 04/01/24 05:35 04/01/24 05:35 Labs: Laboratory Results - last 24 hr 03/31/24 04/01/24 05:03 05:35 MCV 91.6 MCH 29.9 MCHC 32.6 RDW 14.0 Plt Count 405 H MPV 9.0 L Immature Gran % (Auto) 1.0 H Neut % (Auto) 86.8 H Lymph % (Auto) 7.3 L [place] % (Auto) 4.6 Eos % (Auto) 0.2 Baso % (Auto) 0.1 Lymph # (Auto) 1.9 [place] # (Auto) 1.2 Eos # (Auto) 0.0 Baso # (Auto) 0.0 Abs Immat Gran (auto) 0.25 H Absolute Neuts (auto) 22.2 H Absolute Nucleated RBC 0.000 Nucleated RBC % (auto) 0.0 Smear Tech's Comments VERIFIED Hold Purple Top SEE NOTE Anion Gap 11 L Estim Creat Clear Calc 82.2 Estimated GFR > 60 Random Glucose 127 H Estimat Average Glucose 97 Hemoglobin A1c % 5.0 Calcium 7.9 L Microbiology Microbiology Results: Microbiology 03/31/24 05:42 Gram Stain - Final Sputum - Expectorated Sputum Culture - Preliminary Culture in progress. 03/30/24 19:03 Blood Culture - Preliminary Blood - Venous No growth after 24 hours. Assessment and Plan (1) Cavitating mass in right lower lung lobe: Status: Acute Plan 73 yo M with a PMH of tobacco use who presented to [facility] ED on 03/30 with unintentional weight loss, hemoptysis, shortness of breath and an ourpatient cxr which showed significant lung abnormalities. WOrk up in the ED was concerning for lung mass and post obstructive pneumonia. He has been admitted for further care. 1. Pulmonary mass -- likely malignancy 1a. Suspected post obstructive pneumonia continue IV zosyn, add vancomycin; await ID input pulm on board -- eventual bronch low suspicion for TB - but being ruled out HIV pending 2. HypoK resolved 3. Elevated PSA outpatient urology f/u 4. COPD at baseline continue inhalers 5. HLD statin Full Code d/w his son bedside and updates given DVT pptx - mechanical due to hemoptysis Quality Stroke Does the patient have a stroke diagnosis?: No VTE Prior VTE?: No VTE Risk Level:: Medical - moderate - high VTE Device Contraindication: N/A - Device Ordered VTE Drug Contraindication: Treatment Not Indicated
--- NOTE | 2024-04-01 10:56 | MHC.CM.PN ---
PER MD ROUNDS, PT IS NOT MEDICALLY CLEAR AND WILL LIKELY BE HERE THROUGH THE WEEKEND.
--- NOTE | 2024-04-01 11:14 | MHC.CLN ---
F/U SEEN BY DEPARTMENT TRAFFIC FREIGHT ROUTER 03/31 WITH REC FOR CHOPPED DIET. DIET=REGULAR, CHOPPED. ENSURE BID TO INCREASE KCALS. SUPPLEMENT PROVIDES 700 KCALS, 40 G PROTEIN. INTAKE 50-100% X 2 MEALS. MONITOR PO INTAKE AND ENCOURAGE SUPPLEMENT.
[2024-04-01] MEDS: vancomycin HCL 1,500 MG in 0.9 % Sodium Chloride 500 ML 333.33 MG IV (11:16)
--- NOTE | 2024-04-01 11:33 | PHA.PROG ---
Admission Date/Time: March 30, 2024 22:35 Indication: Respiratory Weight in k.1 kg Adjusted body weight in Kg: [place] body weight in Kg: Obesity Dosing Indication % IBW: Serum Creatinine - Last 168 Hours 03/30/24 03/31/24 04/01/24 18:55 05:03 05:35 Creatinine 1.07 0.85 0.67 Estimated CrCl and GFR - Last 168 Hours 03/30/24 03/31/24 04/01/24 18:55 05:03 05:35 Estim Creat Clear Calc 49.3 64.8 82.2 Estimated GFR > 60 > 60 > 60 Vancomycin Loading Dose: 1500mg X 1 Current Vancomycin Dosing Regimen: 1000mg Q12H Vancomycin Monitoring using AUC goal of 400 - 600 range with trough as surrogate marker: 590mg/L Date and Time for next Vancomycin Level to be drawn: 04/02 @2100 Pharmacist Comments on Vancomycin Plan: Predicted trough of 18.3mg/L; will continue to monitor and adjust accordingly Vancomycin dosing will take advantage of [employer] as a clinical decision support tool that uses Bayesian modeling to calculate individual patient's pharmacokinetic parameters and forecast the patient's drug concentration time course with the target goal AUC 24 range of 400 - 600 mg/L/hr.
--- NOTE | 2024-04-01 12:18 | PM.UROCN ---
History of Present Illness Consult details Consult date: 04/01/24 Narrative: Herman is a 73 year old male who has had unintentional weight loss over the last several months. He has had coughing and occasional hemoptysis as well. He had an outpatient chest x-ray 1 week ago that showed a right lung mass concerning for a possible malignancy. The patient was admitted on 03/30/24, he was advised to come to the emergency room by his primary care doctor due to abnormal labs, elevated WBC. Urology called to evaluate due to elevated PSA of 12.8. Review of Systems Review of Systems: Yes all other systems are reviewed and are negative Constitutional: Constitutional: Reports no additional constitutional complaints Eyes: Eyes: Reports no additional eye complaints ENT: Reports system reviewed and no additional complaints, except as documented Cardiovascular: Cardiovascular: Reports no additional cardiovascular complaints Respiratory: Respiratory: Reports no additional respiratory complaints Gastrointestinal: Gastrointestinal: Reports no additional gastrointestinal complaints Genitourinary: Genitourinary: Reports as per HPI Musculoskeletal: Musculoskeletal: Reports no additional musculoskeletal complaints Integumentary/Breasts: Skin/Breast: Reports system reviewed and no additional complaints, except as docu Neurologic: Reports system reviewed and no additional complaints, except as documented Psychiatric: Psychiatric: Reports no additional psychiatric complaints Endocrine: Endocrine: Reports no additional endocrine complaints Hematologic/Lymphatic: Hematologic/Lymphatic: Reports no additional hematologic/lymphatic complaints Allergic/Immunologic: Allergic/Immunologic: Reports no additional allergic/immunologic complaints [facility] Past Medical History Medical History Smoker COPD (chronic obstructive pulmonary disease) Tobacco dependence Hyperlipidemia BPH (benign prostatic hyperplasia) Essential hypertension Social History Social History Household Members: None Housing: Apartment Do you presently have visiting nurse or other home services: No Patient Tobacco Use Status: Former Tobacco user Tobacco use type: Cigarette Smoked in Last 30 Days: Yes Patient Interested in Nicotine Replacement: No Patient Given Instructions on How to Stop Smoking: No Second Hand Smoke Exposure: No Use of substances other than those prescribed or required for medical reasons: No Currently Displaying Signs/Symptoms of Drug Intoxication Withdrawal: No Have you been hit, kicked, punched, or otherwise hurt by someone within the past year? If so, by whom?: No Do you feel safe in your current relationship?: No Current Relationship Is there a partner from a previous relationship who is making you feel unsafe now?: No Are you made to feel afraid or neglected: No Advance Directives: No Advance Directives Information Provided: No Do you have a plan to hurt others: No Plan Recently lost weight without trying: Yes How much weight loss: 14-23 pounds Eating poorly because of decreased appetite: No Nutrition screen score: 4 Nutrition Risks: No Nutritional Risk Poor oral hygiene: No service: No Meds Allergies Allergy/AdvReac Type Severity Reaction Status Date / Time No Known Allergies Allergy Verified 03/30/24 18:06 Active Medications: Current Medications Acetaminophen (Acetaminophen 325 Mg Tablet) 975 mg PO Q6H PRN PRN Reason: Pain, Mild (Pain Scale 1-3), fever or headache Last Admin: 03/31/24 02:25 Dose: 975 mg Albuterol Sulfate (Albuterol Sulfate (0.083%) 2.5 Mg/3 Ml Vial.Neb) 2.5 mg INHALE Q3H PRN PRN Reason: Shortness of Breath/Wheezing Atorvastatin Calcium (Atorvastatin Calcium 40 Mg Tablet) 40 mg PO BEDTIME [facility] Last Admin: 03/31/24 19:35 Dose: 40 mg Calcium Carbonate (Calcium Carbonate 750 Mg Tab.Chew) 750 mg PO Q4H PRN PRN Reason: Heartburn Fluticasone/Vilanterol (Fluticasone/Vilanterol 100/25 Blst.W.Dev) 1 puff INHALE RDAILY [facility] Last Admin: 04/01/24 08:37 Dose: 1 puff Guaifenesin (Guaifenesin 200 Mg/10 Ml 10 Ml Liquid) 10 ml PO Q6H PRN PRN Reason: Cough Piperacillin Sod/Tazobactam (Sod 3.375 gm/ Sodium Chloride) 50 mls @ 100 mls/hr IV Q6H [facility] Last Infusion: 04/01/24 06:32 Dose: Infused Lactated Ringer's (Lr) 1,000 mls @ 100 mls/hr IVCONT .Q10H [facility] Last Admin: 04/01/24 11:16 Dose: 100 mls/hr Vancomycin HCl 1,500 mg/ (Sodium Chloride) 500 mls @ 333.333 mls/hr IV ONCE ONE Stop: 04/01/24 12:29 Last Admin: 04/01/24 11:16 Dose: 333.33 mls/hr Vancomycin HCl 1,000 mg/ (Sodium Chloride) 270 mls @ 270 mls/hr IV Q12H [facility] Magnesium Hydroxide (Milk Of Magnesia 30 Ml Oral.Susp) 30 ml PO DAILY PRN PRN Reason: Constipation Melatonin (Melatonin 3 Mg Tablet) 6 mg PO BEDTIME PRN PRN Reason: Insomnia Pharmacy Consult (Consult Rx Vancomycin Dosing) 1 each MISCELLANE DAILY PRN PRN Reason: Consult order Sodium Chloride (0.9 % Sodium Chloride Flush 3 Ml Syringe) 3 ml IVFLUSH QSHIFT [facility] Last Admin: 04/01/24 07:37 Dose: Not Given Home Medications ?Medication ?Instructions ?Recorded ?Confirmed ?Last Taken ?Type albuterol sulfate 90 mcg/actuation 2 inh inhalation Q6H PRN dyspnea 03/31/24 03/31/24 Unknown History aerosol inhaler atorvastatin 40 mg tablet 40 mg PO BEDTIME 03/31/24 03/31/24 03/30/24 History fluticasone furoate 100 1 ea inhalation DAILY 03/31/24 03/31/24 Unknown History mcg-vilanterol 25 mcg/dose inhalation powder (Breo Ellipta) Physical Exam Vital Signs: Vital Signs: Last Vital Signs Temp 97.6 F 04/01/24 08:41 Pulse 94 04/01/24 08:41 Resp 18 04/01/24 08:41 BP 143/60 H 04/01/24 08:41 Pulse Ox 94 04/01/24 08:41 O2 Del Method Room Air 04/01/24 08:41 BMI result Body Mass Index 20.7 Results Labs 04/01/24 05:35 04/01/24 05:35 Labs: Abnormal lab results 04/01/24 Range/Units 05:35 WBC 25.5 H (4.8-10.8) X10*3/uL RBC 2.61 L (4.60-5.80) X10*6/uL Hgb 7.8 L (14.0-18.0) g/dl Hct 23.9 L (42.0-52.0) % Plt Count 405 H (160-400) X10*3/uL MPV 9.0 L (9.4-12.4) fL Immature Gran % (Auto) 1.0 H (0.0-0.4) % Neut % (Auto) 86.8 H (45-73) % Lymph % (Auto) 7.3 L (20-40) % Abs Immat Gran (auto) 0.25 H (0.00-0.03) X10*3/uL Absolute Neuts (auto) 22.2 H (2.0-8.3) x10*3/uL Anion Gap 11 L (12-20) Random Glucose 127 H (60-115) mg/dL Calcium 7.9 L (8.4-10.2) mg/dL Short CBC 04/01/24 Range/Units 05:35 WBC 25.5 H (4.8-10.8) X10*3/uL Hgb 7.8 L (14.0-18.0) g/dl Hct 23.9 L (42.0-52.0) % Plt Count 405 H (160-400) X10*3/uL BMP 04/01/24 05:35 Sodium 136 Potassium 3.5 D Chloride 106 Carbon Dioxide 23 BUN 16 Creatinine 0.67 Calcium 7.9 L Urine 03/31/24 Range/Units 06:20 Urine Color Yellow Urine Appearance Clear Urine pH 5.5 (5.0-9.0) Ur Specific [place] >= 1.030 H (1.005-1.025) Urine Protein Trace (Neg-Trace) mg/dL Urine Glucose (UA) Negative (Negative) mg/dL Imaging CT scan - chest: report reviewed Additional studies: Date of Service: 03/30/24 EXAMINATION: CT CHEST WITH CONTRAST CLINICAL INFORMATION: Lung mass on prior chest radiograph COMPARISON: Chest radiograph 03/23/2024 TECHNIQUE: Multidetector volumetric CT imaging of the chest was obtained after the administration of 65 mL of Omnipaque 350 intravenous contrast without immediate adverse reactions. Axial MIP volume rendering provided. Sagittal and coronal reformatted images were obtained. This CT examination was performed using dose optimization techniques as appropriate, variously including the following: *Automated exposure control *Adjustment of mA and/or kV according to patient size (this includes techniques or standardized protocols for targeted exams where dose is matched to indication/reason for exam; i.e. extremities or head) *Use of iterative reconstruction technique DLP: 201 mGy-cm FINDINGS: LUNGS: Marked emphysematous changes are present throughout the lungs. Marked subpleural cystic changes are seen predominantly in the upper lobes there is one area of cyst thickening in the left upper lobe anteriorly (5:152). There are large multifocal areas of consolidation seen in the right lower lobe with associated marked bronchial thickening. There is cavitary area seen posterolaterally measuring 2.8 2.7 x 3 0.1 mL (5:241 and 7:78). Number of smaller nodular densities are seen including some tree-in-bud opacities. There is an area of masslike infiltrate present in the left upper lobe measuring 1.6 x 0.7 x 1.2 cm (5:181 and 6:27). Scattered pulmonary nodules are seen some related to bronchial is mucosal mucoid impaction with the largest nodule measuring 1 cm in the right middle lobe anterior to the major fissure (5:270 and 7:84). MEDIASTINUM: There is a large precarinal lymph node present measuring 3.0 x 2.1 x 3.7 cm (3:24 and 7:61). Some other smaller perihilar lymph nodes are present. There is encasement of the right mainstem bronchus by abnormal soft tissue mass measuring 4.2 x 2.2 x 2.0 cm (3:28 and 6:48). Marked coronary calcium is present. PLEURA: There is no pleural effusion. No pleural mass or thickening. AXILLA: No lymphadenopathy. UPPER ABDOMEN: A large right extrarenal pelvis is partially imaged. No adrenal masses are seen. No evidence of hepatic metastases. OSSEOUS STRUCTURES: No evidence of bony metastatic disease. IMPRESSION: 1. Marked emphysematous changes with soft tissue mass encasing the right mainstem bronchus with associated mediastinal and hilar lymph nodes. There are associated multifocal areas of consolidation in the right lower lobe with associated bronchial thickening and a cavitary area. There is also a masslike area of infiltrate in the left upper lobe. Findings are worrisome for malignancy as well as infection. Pulmonary consultation and bronchoscopy recommended. 2. Other incidental findings as described above. Assessment and Plan (1) Smoker: Status: Acute (2) COPD (chronic obstructive pulmonary disease): Status: Acute (3) Cavitating mass in right lower lung lobe: Status: Acute (4) Pneumonia involving right lung: Qualifiers: Lung location: lower lobe of lung Pneumonia type: due to unspecified organism Qualified Code(s): J18.9 - Pneumonia, unspecified organism Status: Acute (5) Elevated PSA: Status: Acute Plan Patient with unintentional weight loss. Imaging worrisome for malignancy of the lung. Patient is on IV antibiotics for pneumonia. also w/u to r/o TB. Pulmonary following. Elevated PSA. Further workup as an outpatient. Recommend start Proscar 5 mg daily Procedures Date of Service Date of Service: 04/01/24
--- NOTE | 2024-04-01 13:12 | MHC.SL.SWA ---
Speech Pathologist Impression: Risk of Aspiration Due to: History of Pneumonia Dysphasia Diet Status: Recommend continue on Chopped/Advanced (NDD2) with THIN liquids, pills whole with liquid. Liquid Consistency and Strategies for Safe Swallow: Liquid Intake Recommendation: Thin Liquid Intake Strategies: Unrestricted Solid Food Consistency: Dietary Recommendations: Chopped/Advanced (NDD3) Additional Modifications to Solid Foods: Add sauces and gravies, blend in. Alternate liquids and solids. Liquids by straw o.k. Oral Medication Intake: Whole with Liquid Please contact the pharmacy regarding appropriate crushable or liquid drug formulations that are available whenever modified delivery is recommended. Compensatory Strategies and Precautions to be Taken for Safe Swallow: Sitting Upright (90 deg) Small Bites and Sips Alternate Liquids/Solids Supervision While Eating and Drinking for Safe Swallow: None Needed Foods to Avoid: Hard, difficulty to chew solids; dry, crusty or crunchy textures. Swallowing Recommended Treatments: Compens. Strategy Educat. Recommendation for Speech: Inpatient Speech Therapy Comment: Patient seen at lunch for toleration of recommended diet of Chopped/Advanced (NDD3) with Thin liquids, pills whole with liquid. Patient was awake and alert with son visiting and present in room. Son reported that his father was not eating at all prior to this admission and had been living on his own. Son stated that he plans to have father stay with him after discharge. Breakfast tray was still present in room, with evidence patient had eaten very little. SYSTEMS [employer] pointed out nutritional shake on tray, however patient firmly stated that he did not want it and would not accept it, what ever flavor. Patient was receptive to having lunch tray set up for him, and began to eat independently, seated upright in his bed. Patient took a few bites of the chopped [place], but on second bite, removed it from mouth stating it was too hard for him to chew. He did note that he liked the purees present (mashed potatoes and mashed squash) and began eating those. He also commented he wanted cake with son pointing out brownie on tray, to be eaten when done. Son stated that he would make sure he ate, delaying the brownie until other foods were consumed. Although turkey presented as too hard to chew, continue to recommend diet at this consistency, as patient does prefer soft cakes, e.g. and will have purees along with chopped foods at meal that he prefers. Son, who is an manufacturing executive, was encouraged to continue to provide softer, easy to chew solids if discharged to his care. No further guidance consultant services indicated at this time, SYSTEMS SPEC will d/c. Please re-consult if additional concerns arise during in patient stay. Frequency/Duration: Date Range for Service Req: Timeline to reassess: Flower Grader Clinican/Clinical Fellow: No Supervisory Statement: I have reviewed and agree with the student/clinical fellow's documentation: N/A Speech Language Pathologist: Samreen Lee M.A., [facility]
[2024-04-01 15:31] VITALS: BP 130/59; PULSE 103; RESP 18; TEMP 36.8; O2SAT 97
[2024-04-01 16:07] VITALS: PULSE 103; RESP 18; O2SAT 95
--- NOTE | 2024-04-01 16:08 | PC.RT ---
4ml 3% hypertonic saline given via svn for purpose of sputum induction for AFB. The sample was obtained in an sterile container, labled with pt info, time of collection, date of collection and the #3 to represent the 3rd AFB collected. The biohazard bag was labled with the same information and handed to the charge nurse on the pts floor for delivery to the lab.
[2024-04-01] MEDS: 0.9 % Sodium Chloride Flush 3 ML SYRINGE IVFLUSH ×2 (16:34→23:36)
[2024-04-01 19:45] VITALS: BP 119/56; PULSE 99; RESP 18; TEMP 36.8; O2SAT 93
[2024-04-01] MEDS: Atorvastatin Calcium 40 MG TABLET PO (22:35)
[2024-04-01] MEDS: vancomycin HCL 1,000 MG in 0.9 % Sodium Chloride 250 ML 270 MG IV (22:36)
[2024-04-02 04:00] VITALS: BP 116/55; PULSE 88; RESP 16; TEMP 36.6; O2SAT 94
[2024-04-02] MEDS: Piperacillin Sodium/Tazobactam 3.375 GM in 0.9 % Sodium Chloride 50 ML IV ×4 (05:40→23:29)
[2024-04-02] MEDS: guaiFENesin 200 MG/10 ML 10 ML LIQUID PO ×2 (06:19→12:04)
[2024-04-02 06:38] LABS: Creatinine Clr Calc Pharmacy 63.3; Estimated Glomerular Filt Rate > 60
[2024-04-02 07:27] VITALS: BP 116/58; PULSE 88; RESP 20; TEMP 36.9; O2SAT 94
[2024-04-02] MEDS: 0.9 % Sodium Chloride Flush 3 ML SYRINGE IVFLUSH ×3 (08:22→23:29)
[2024-04-02] MEDS: Fluticasone/Vilanterol 100/25 BLST.W.DEV 1 PUFF INHALE (08:37)
[2024-04-02 08:39] VITALS: PULSE 88; RESP 20; O2SAT 94
[2024-04-02] MEDS: Finasteride 5 MG TABLET PO (09:01)
[2024-04-02] MEDS: vancomycin HCL 750 MG in 0.9 % Sodium Chloride 250 ML 265 MG IV ×2 (09:01→22:28)
[2024-04-02 09:10] LABS: Potassium 3.1 mmol/L (3.3-5.1)
[2024-04-02 09:14] LABS: Basophils Percent Auto 0.2 % (0-2); Eosinophils Absolute Auto 0.1 X10*3/uL (0.0-0.4); Eosinophils Percent Auto 0.5 % (0-4); Hematocrit 24.4 % (42.0-52.0); Hemoglobin 7.8 g/dl (14.0-18.0); Imm Gran Abs Auto 0.21 X10*3/uL (0.00-0.03); Imm Gran Pct Auto 0.9 % (0.0-0.4); Lymphocytes Absolute Auto 2.2 X10*3/uL (1.2-4.9); MANUAL DIFF FLAG SCAN; Mean Corpuscular Hemoglobin 29.2 pg (27.0-33.0); Mean Corpuscular Volume 91.4 fL (80.0-98.0); Mean Platelet Volume 9.3 fL (9.4-12.4); Monocytes Absolute Auto 1.3 X10*3/uL (0.1-1.2); Monocytes Percent Auto 5.3 % (2-11); Neutrophils Absolute Auto 20.3 x10*3/uL (2.0-8.3); Neutrophils Percent Auto 84.1 % (45-73); Platelet Count 403 X10*3/uL (160-400); Red Blood Count 2.67 X10*6/uL (4.60-5.80); Red Cell Distribution Width 14.3 % (11.0-16.0); SCAN SMEAR FLAG 1; White Blood Count 24.1 X10*3/uL (4.8-10.8)
[2024-04-02 09:46] LABS: SLIDE REVIEW VERIFIED
--- NOTE | 2024-04-02 11:43 | P.PNIM_ITS ---
Subjective Subjective Date of Service: 04/02/24 Interval History: seen and examined less hemoptysis sob improving Review of Systems Negative except HPI/interval history. Physical Exam 2 Vital Signs: Vital Signs: Last Vital Signs Temp 98.4 F 04/02/24 07:27 Pulse 88 04/02/24 08:39 Resp 20 04/02/24 08:39 BP 116/58 L 04/02/24 07:27 Pulse Ox 94 04/02/24 07:27 O2 Del Method Room Air 04/02/24 07:27 BMI result Body Mass Index 20.7 Const: Other: General - no acute distress, appears comfortable Cardiovascular - regular rate and rhythm, S1-S2 Lungs - normal respiratory effort Abdomen - soft, nontender, no rebound or guarding Extremities - no edema bilaterally Neuro - awake and alert, no focal deficits Objective Data Active Medications Acetaminophen (Acetaminophen 325 Mg Tablet) 975 mg PO Q6H PRN PRN Reason: Pain, Mild (Pain Scale 1-3), fever or headache Last Admin: 03/31/24 02:25 Dose: 975 mg Documented By: ARIS Albuterol Sulfate (Albuterol Sulfate (0.083%) 2.5 Mg/3 Ml Vial.Neb) 2.5 mg INHALE Q3H PRN PRN Reason: Shortness of Breath/Wheezing Atorvastatin Calcium (Atorvastatin Calcium 40 Mg Tablet) 40 mg PO BEDTIME [facility] Last Admin: 04/01/24 22:35 Dose: 40 mg Documented By: XANDER Calcium Carbonate (Calcium Carbonate 750 Mg Tab.Chew) 750 mg PO Q4H PRN PRN Reason: Heartburn Finasteride (Finasteride 5 Mg Tablet) 5 mg PO DAILY [facility] Last Admin: 04/02/24 09:01 Dose: 5 mg Documented By: SHAZIA Fluticasone/Vilanterol (Fluticasone/Vilanterol 100/25 Blst.W.Dev) 1 puff INHALE RDAILY [facility] Last Admin: 04/02/24 08:37 Dose: 1 puff Documented By: LATESHA Guaifenesin (Guaifenesin 200 Mg/10 Ml 10 Ml Liquid) 10 ml PO Q6H PRN PRN Reason: Cough Last Admin: 04/02/24 06:19 Dose: 10 ml Documented By: XANDRE Piperacillin Sod/Tazobactam (Sod 3.375 gm/ Sodium Chloride) 50 mls @ 100 mls/hr IV Q6H [facility] Last Infusion: 04/02/24 06:10 Dose: Infused Documented By: XANDER Vancomycin HCl 750 mg/ Sodium (Chloride) 265 mls @ 265 mls/hr IV Q12H [facility] Last Infusion: 04/02/24 10:01 Dose: Infused Documented By: SHAZIA Magnesium Hydroxide (Milk Of Magnesia 30 Ml Oral.Susp) 30 ml PO DAILY PRN PRN Reason: Constipation Melatonin (Melatonin 3 Mg Tablet) 6 mg PO BEDTIME PRN PRN Reason: Insomnia Pharmacy Consult (Consult Rx Vancomycin Dosing) 1 each MISCELLANE DAILY PRN PRN Reason: Consult order Sodium Chloride (0.9 % Sodium Chloride Flush 3 Ml Syringe) 3 ml IVFLUSH QSHIFT [facility] Last Admin: 04/02/24 08:22 Dose: 3 ml Documented By: SHAZIA Labs 04/02/24 05:33 04/02/24 05:33 Labs: Laboratory Results - last 24 hr 04/02/24 05:33 MCV 91.4 MCH 29.2 MCHC 32.0 RDW 14.3 Plt Count 403 H MPV 9.3 L Immature Gran % (Auto) 0.9 H Neut % (Auto) 84.1 H Lymph % (Auto) 9.0 L [place] % (Auto) 5.3 Eos % (Auto) 0.5 Baso % (Auto) 0.2 Lymph # (Auto) 2.2 [place] # (Auto) 1.3 H Eos # (Auto) 0.1 Baso # (Auto) 0.0 Abs Immat Gran (auto) 0.21 H Absolute Neuts (auto) 20.3 H Absolute Nucleated RBC 0.000 Nucleated RBC % (auto) 0.0 Smear Tech's Comments VERIFIED Hold Purple Top SEE NOTE Estim Creat Clear Calc 63.3 Estimated GFR > 60 Microbiology Microbiology Results: Microbiology 03/31/24 05:42 Gram Stain - Final Sputum - Expectorated Sputum Culture - Preliminary Gram negative kemi 03/30/24 18:55 Blood Culture - Preliminary Blood - Venous No growth after 48 hours. 03/30/24 19:03 Blood Culture - Preliminary Blood - Venous No growth after 48 hours. Assessment and Plan (1) Cavitating mass in right lower lung lobe: Status: Acute Plan 73 yo M with a PMH of tobacco use who presented to [facility] ED on 03/30 with unintentional weight loss, hemoptysis, shortness of breath and an ourpatient cxr which showed significant lung abnormalities. WOrk up in the ED was concerning for lung mass and post obstructive pneumonia. He has been admitted for further care. 1. Pulmonary mass -- likely malignancy 1a. Suspected post obstructive pneumonia - sputum with gram neg rods will continue zosyn/vancomyin for now -- f/u final cultues pulm on board -- eventual bronch low suspicion for TB - but being ruled out HIV pending 2. HypoK resolved 3. Elevated PSA outpatient urology f/u 4. COPD at baseline continue inhalers 5. HLD statin Full Code DVT pptx - mechanical due to hemoptysis Quality Stroke Does the patient have a stroke diagnosis?: No VTE Prior VTE?: No VTE Risk Level:: Medical - moderate - high VTE Device Contraindication: N/A - Device Ordered VTE Drug Contraindication: Treatment Not Indicated
[2024-04-02] MEDS: Potassium Chloride ER 20 MEQ TAB.ER.PRT 40 MEQ PO (12:04)
--- NOTE | 2024-04-02 13:47 | P.CNID_ITS ---
History of Present Illness Data of Consult Service Date: 04/01/24 Requesting physician: Aleksandr Welsh Primary Care Provider: Antwon Peralta MD HPI Reason for consult: leukocytosis,lung abnormality right mass He presents to [facility] with 20 pound weight loss while describing hemopytis to his PCP ,Dr Peralta. He describes no fever or chills. He has right lung mass right mainstream bronchus with cavity and some concern over postobstructive features. I dont see that HIV is positive. Review of Systems 2 Review of Systems: Yes all other systems are reviewed and are negative Constitutional: Constitutional: Reports lethargy and Reports weight loss Respiratory: Respiratory: Reports hemoptysis [facility] Past Medical History Medical History Smoker COPD (chronic obstructive pulmonary disease) Tobacco dependence Hyperlipidemia BPH (benign prostatic hyperplasia) Essential hypertension Social History Social History Household Members: None Housing: Apartment Do you presently have visiting nurse or other home services: No Patient Tobacco Use Status: Former Tobacco user Tobacco use type: Cigarette Smoked in Last 30 Days: Yes Patient Interested in Nicotine Replacement: No Patient Given Instructions on How to Stop Smoking: No Second Hand Smoke Exposure: No Use of substances other than those prescribed or required for medical reasons: No Currently Displaying Signs/Symptoms of Drug Intoxication Withdrawal: No Have you been hit, kicked, punched, or otherwise hurt by someone within the past year? If so, by whom?: No Do you feel safe in your current relationship?: No Current Relationship Is there a partner from a previous relationship who is making you feel unsafe now?: No Are you made to feel afraid or neglected: No Advance Directives: No Advance Directives Information Provided: No Do you have a plan to hurt others: No Plan Recently lost weight without trying: Yes How much weight loss: 14-23 pounds Eating poorly because of decreased appetite: No Nutrition screen score: 4 Nutrition Risks: No Nutritional Risk Poor oral hygiene: No service: No Meds Allergies Allergy/AdvReac Type Severity Reaction Status Date / Time No Known Allergies Allergy Verified 03/30/24 18:06 Active Medications: Current Medications Acetaminophen (Acetaminophen 325 Mg Tablet) 975 mg PO Q6H PRN PRN Reason: Pain, Mild (Pain Scale 1-3), fever or headache Last Admin: 03/31/24 02:25 Dose: 975 mg Albuterol Sulfate (Albuterol Sulfate (0.083%) 2.5 Mg/3 Ml Vial.Neb) 2.5 mg INHALE Q3H PRN PRN Reason: Shortness of Breath/Wheezing Atorvastatin Calcium (Atorvastatin Calcium 40 Mg Tablet) 40 mg PO BEDTIME [facility] Last Admin: 04/01/24 22:35 Dose: 40 mg Calcium Carbonate (Calcium Carbonate 750 Mg Tab.Chew) 750 mg PO Q4H PRN PRN Reason: Heartburn Finasteride (Finasteride 5 Mg Tablet) 5 mg PO DAILY [facility] Last Admin: 04/02/24 09:01 Dose: 5 mg Fluticasone/Vilanterol (Fluticasone/Vilanterol 100/25 Blst.W.Dev) 1 puff INHALE RDAILY [facility] Last Admin: 04/02/24 08:37 Dose: 1 puff Guaifenesin (Guaifenesin 200 Mg/10 Ml 10 Ml Liquid) 10 ml PO Q6H PRN PRN Reason: Cough Last Admin: 04/02/24 12:04 Dose: 10 ml Piperacillin Sod/Tazobactam (Sod 3.375 gm/ Sodium Chloride) 50 mls @ 100 mls/hr IV Q6H [facility] Last Infusion: 04/02/24 12:48 Dose: Infused Vancomycin HCl 750 mg/ Sodium (Chloride) 265 mls @ 265 mls/hr IV Q12H [facility] Last Infusion: 04/02/24 10:01 Dose: Infused Magnesium Hydroxide (Milk Of Magnesia 30 Ml Oral.Susp) 30 ml PO DAILY PRN PRN Reason: Constipation Melatonin (Melatonin 3 Mg Tablet) 6 mg PO BEDTIME PRN PRN Reason: Insomnia Pharmacy Consult (Consult Rx Vancomycin Dosing) 1 each MISCELLANE DAILY PRN PRN Reason: Consult order Sodium Chloride (0.9 % Sodium Chloride Flush 3 Ml Syringe) 3 ml IVFLUSH QSHIFT [facility] Last Admin: 04/02/24 08:22 Dose: 3 ml Home Medications ?Medication ?Instructions ?Recorded ?Confirmed ?Last Taken ?Type albuterol sulfate 90 mcg/actuation 2 inh inhalation Q6H PRN dyspnea 03/31/24 03/31/24 Unknown History aerosol inhaler atorvastatin 40 mg tablet 40 mg PO BEDTIME 07/11/24 07/11/24 07/10/24 History fluticasone furoate 100 1 ea inhalation DAILY 03/31/24 03/31/24 Unknown History mcg-vilanterol 25 mcg/dose inhalation powder (Breo Ellipta) Physical Exam 2 Vital Signs: Vital Signs: Last Vital Signs Temp 98.4 F 04/02/24 07:27 Pulse 88 04/02/24 08:39 Resp 20 04/02/24 08:39 BP 116/58 L 04/02/24 07:27 Pulse Ox 94 04/02/24 07:27 O2 Del Method Room Air 04/02/24 07:27 BMI result Body Mass Index 20.7 Const: General: cooperative and ill appearing HEENT: Head: Yes normal to inspection Face and sinus: Yes normal facial exam Mouth: Normal oral and palatal mucosa present Teeth and gingiva: d entition normal Eyes: General: appearance normal, both eyes and all related structures P upils: Equal, round and reactive pupils present Resp: Effort & Inspection: normal respiratory effort Auscultation: d iminished lung sounds Cardio: Rate: regular rate Rhythm: regular rhythm GI: Palpation (GI): Soft to palpation and nontender : General: Yes no CVA tenderness Back/Spine/Pelvis: Back: no CVA tenderness Skin: General skin exam: no rashes or lesions noted Neuro: General: moves all extremities Cranial nerves: Yes Equal, round and reactive pupils present Extrem: General: Yes normal to inspection Psych: Appearance: grossly normal Results Labs 04/02/24 05:33 04/02/24 05:33 Labs: Short CBC 04/02/24 Range/Units 05:33 WBC 24.1 H (4.8-10.8) X10*3/uL Hgb 7.8 L (14.0-18.0) g/dl Hct 24.4 L (42.0-52.0) % Plt Count 403 H (160-400) X10*3/uL BMP 04/02/24 05:33 Potassium 3.1 L Creatinine 0.87 Microbiology Microbiology Results: Microbiology 03/31/24 05:42 Sputum - Expectorated Gram Stain - Final 03/31/24 05:42 Sputum - Expectorated Sputum Culture - Preliminary Gram negative kemi 03/30/24 18:55 Blood - Venous Blood Culture - Preliminary No growth after 48 hours. 03/30/24 19:03 Blood - Venous Blood Culture - Preliminary No growth after 48 hours. Assessment and Plan (1) COPD (chronic obstructive pulmonary disease): Status: Acute (2) Weight loss: Status: Acute (3) Cavitating mass in right lower lung lobe: Status: Acute (4) Pneumonia involving right lung: Qualifiers: Lung location: lower lobe of lung Pneumonia type: due to unspecified organism Qualified Code(s): J18.9 - Pneumonia, unspecified organism Status: Acute Plan There is possible malignancy causing some postobstructive pneumonia. There is possible gram negative such as Hflu or MRSA or anerobes There is possible HIV He is a smoker and may have adenocarcinoma ?prostate,possibly carcinoid tumor There is possible tuberculosis although less likely (less than 5% prevalence locally). Would check HIV test (will cancel tests ordered in error such as viral load and genotype unless HIV is already known to be positive). Check sputum culture AFB smear and if positive can consider defer bronchoscopy otherwise will likely need it. Continue Zosyn 5-7 days postobstructive pneumonia . Check MRSA nares and stop Vancomycin if positive.
[2024-04-02 16:41] VITALS: BP 127/80; PULSE 76; RESP 12; TEMP 37; O2SAT 96
[2024-04-02 20:00] VITALS: BP 113/53; PULSE 88; RESP 18; TEMP 36.6; O2SAT 97
[2024-04-02 21:44] LABS: TS Negative Control Passed; TS Panel A 3; TS Panel B 0; TS Positive Control Passed; TSpotTB Negative (Negative)
[2024-04-02 21:50] LABS: Vancomycin Random 15.1 mcg/mL (15-20)
[2024-04-02] MEDS: Atorvastatin Calcium 40 MG TABLET PO (22:27)
[2024-04-03 04:00] VITALS: BP 122/57; PULSE 81; RESP 16; TEMP 36.4; O2SAT 93
[2024-04-03 05:39] LABS: HIV RNA PCR Qn Copies Not Detected Copies/mL; HIV RNA PCR Qn Log Copies Not Detected Log cps/mL
[2024-04-03] MEDS: Piperacillin Sodium/Tazobactam 3.375 GM in 0.9 % Sodium Chloride 50 ML IV ×4 (06:21→23:46)
[2024-04-03 06:31] LABS: Estimated Glomerular Filt Rate > 60
[2024-04-03 07:30] VITALS: BP 111/58; PULSE 90; RESP 16; TEMP 36.3; O2SAT 94
[2024-04-03] MEDS: Finasteride 5 MG TABLET PO (08:25)
[2024-04-03] MEDS: 0.9 % Sodium Chloride Flush 3 ML SYRINGE IVFLUSH ×3 (08:25→23:47)
[2024-04-03] MEDS: Fluticasone/Vilanterol 100/25 BLST.W.DEV 1 PUFF INHALE (08:40)
[2024-04-03 08:41] VITALS: PULSE 90; RESP 16; O2SAT 94
[2024-04-03 08:48] LABS: MRSA Nasal PCR NEGATIVE (Negative); SA Nasal PCR NEGATIVE (Negative)
--- NOTE | 2024-04-03 11:48 | HO.PM.IMPN ---
Subjective Subjective Date of Service: 04/03/24 Interval History: seen and examined no new complaints Review of Systems Negative except HPI/interval history. Physical Exam Vital Signs: Vital Signs: Last Vital Signs Temp 97.4 F 04/03/24 07:30 Pulse 90 04/03/24 08:41 Resp 16 04/03/24 08:41 BP 111/58 L 04/03/24 07:30 Pulse Ox 94 04/03/24 07:30 O2 Del Method Room Air 04/03/24 07:30 BMI result Body Mass Index 20.7 Const: Other: General - no acute distress, appears comfortable Cardiovascular - regular rate and rhythm, S1-S2 Lungs - normal respiratory effort Abdomen - soft, nontender, no rebound or guarding Extremities - no edema bilaterally Neuro - awake and alert, no focal deficits Objective Data Active Medications Acetaminophen (Acetaminophen 325 Mg Tablet) 975 mg PO Q6H PRN PRN Reason: Pain, Mild (Pain Scale 1-3), fever or headache Last Admin: 03/31/24 02:25 Dose: 975 mg Documented By: ARIS Albuterol Sulfate (Albuterol Sulfate (0.083%) 2.5 Mg/3 Ml Vial.Neb) 2.5 mg INHALE Q3H PRN PRN Reason: Shortness of Breath/Wheezing Atorvastatin Calcium (Atorvastatin Calcium 40 Mg Tablet) 40 mg PO BEDTIME [facility] Last Admin: 04/02/24 22:27 Dose: 40 mg Documented By: XANDER Calcium Carbonate (Calcium Carbonate 750 Mg Tab.Chew) 750 mg PO Q4H PRN PRN Reason: Heartburn Finasteride (Finasteride 5 Mg Tablet) 5 mg PO DAILY [facility] Last Admin: 04/03/24 08:25 Dose: 5 mg Documented By: SHAZIA Fluticasone/Vilanterol (Fluticasone/Vilanterol 100/25 Blst.W.Dev) 1 puff INHALE RDAILY [facility] Last Admin: 04/03/24 08:40 Dose: 1 puff Documented By: LATESHA Guaifenesin (Guaifenesin 200 Mg/10 Ml 10 Ml Liquid) 10 ml PO Q6H PRN PRN Reason: Cough Last Admin: 04/02/24 12:04 Dose: 10 ml Documented By: SHAZIA Piperacillin Sod/Tazobactam (Sod 3.375 gm/ Sodium Chloride) 50 mls @ 100 mls/hr IV Q6H [facility] Last Admin: 04/03/24 11:41 Dose: 100 mls/hr Documented By: SHAZIA Magnesium Hydroxide (Milk Of Magnesia 30 Ml Oral.Susp) 30 ml PO DAILY PRN PRN Reason: Constipation Melatonin (Melatonin 3 Mg Tablet) 6 mg PO BEDTIME PRN PRN Reason: Insomnia Pharmacy Consult (Consult Rx Vancomycin Dosing) 1 each MISCELLANE DAILY PRN PRN Reason: Consult order Sodium Chloride (0.9 % Sodium Chloride Flush 3 Ml Syringe) 3 ml IVFLUSH QSHIFT [facility] Last Admin: 04/03/24 08:25 Dose: 3 ml Documented By: SHAZIA Labs 04/02/24 05:33 04/03/24 05:36 Labs: Laboratory Results - last 24 hr 03/31/24 03/31/24 04/02/24 05:03 10:17 15:08 Estim Creat Clear Calc Estimated GFR Nasal Screen MRSA (PCR) NEGATIVE Nasal S. aureus Screen NEGATIVE Nasal MRSA/S.aureus Interp SEE NOTE Random Vancomycin HIV-1 RNA copies/mL Not Detected HIV-1 RNA logcopies/mL Not Detected TB Test (T-Spot) Com Negative TB Test Nil Control Passed TB Test Panel A 3 TB Test Panel B 0 TB Test Positive Cntrl Passed 04/02/24 04/03/24 21:10 05:36 Estim Creat Clear Calc 64.0 Estimated GFR > 60 Nasal Screen MRSA (PCR) Nasal S. aureus Screen Nasal MRSA/S.aureus Interp Random Vancomycin 15.1 HIV-1 RNA copies/mL HIV-1 RNA logcopies/mL TB Test (T-Spot) Com TB Test Nil Control TB Test Panel A TB Test Panel B TB Test Positive Cntrl Microbiology Microbiology Results: Microbiology 03/31/24 05:42 Gram Stain - Final Sputum - Expectorated Sputum Culture - Final Klebsiella oxytoca Assessment and Plan (1) Cavitating mass in right lower lung lobe: Status: Acute Plan 73 yo M with a PMH of tobacco use who presented to [facility] on 03/30 with unintentional weight loss, hemoptysis, shortness of breath and an ourpatient cxr which showed significant lung abnormalities. WOrk up in the ED was concerning for lung mass and post obstructive pneumonia. He has been admitted for further care. 1. Pulmonary mass -- likely malignancy 1a. post obstructive pneumonia with klebsiella oxytoca nasal MRSA negative -- stop vancomcyin will continue zosyn for now pulm on board -- eventual bronch, ? during this hospitalization T-spot negative, will d/c isolation HIV pending 2. HypoK resolved 3. Elevated PSA outpatient urology f/u 4. COPD at baseline continue inhalers 5. HLD statin Full Code DVT pptx - mechanical due to hemoptysis Quality Stroke Does the patient have a stroke diagnosis?: No VTE Prior VTE?: No VTE Risk Level:: Medical - moderate - high VTE Device Contraindication: N/A - Device Ordered VTE Drug Contraindication: Treatment Not Indicated
--- NOTE | 2024-04-03 14:38 | PC.NURSE ---
Per MD Welsh no additional lab work needed today, will order AM labs for 04/04.
[2024-04-03 15:25] VITALS: BP 119/57; PULSE 76; RESP 18; TEMP 36.7; O2SAT 97
[2024-04-03 18:50] VITALS: BP 129/61; PULSE 84; RESP 18; TEMP 37; O2SAT 96
[2024-04-03] MEDS: Atorvastatin Calcium 40 MG TABLET PO (21:56)
[2024-04-03] MEDS: Melatonin 3 MG TABLET 6 MG PO (21:56)
[2024-04-03] MEDS: guaiFENesin 200 MG/10 ML 10 ML LIQUID PO (21:57)
[2024-04-04 02:25] VITALS: BP 108/58; PULSE 83; RESP 17; TEMP 36.7; O2SAT 95
[2024-04-04 04:55] LABS: HIV AB/AG Nonreactive (Nonreactive); HIV Num 1 0.06 S/CO (0.00-0.99)
[2024-04-04] MEDS: Piperacillin Sodium/Tazobactam 3.375 GM in 0.9 % Sodium Chloride 50 ML IV (06:08)
[2024-04-04 06:35] LABS: Creatinine Clr Calc Pharmacy 66.3; Estimated Glomerular Filt Rate > 60
[2024-04-04 07:56] VITALS: BP 129/61; PULSE 89; RESP 14; TEMP 37.1; O2SAT 94
[2024-04-04] MEDS: Fluticasone/Vilanterol 100/25 BLST.W.DEV 1 PUFF INHALE (08:24)
[2024-04-04 08:26] VITALS: PULSE 89; RESP 16; O2SAT 94
[2024-04-04 08:58] LABS: Hematocrit 24.9 % (42.0-52.0); Hemoglobin 8.1 g/dl (14.0-18.0); Mean Corpuscular HGB Conc 32.5 g/dl (31.0-36.0); Mean Corpuscular Hemoglobin 29.5 pg (27.0-33.0); Mean Corpuscular Volume 90.5 fL (80.0-98.0); Mean Platelet Volume 8.8 fL (9.4-12.4); Platelet Count 406 X10*3/uL (160-400); Red Blood Count 2.75 X10*6/uL (4.60-5.80); Red Cell Distribution Width 14.4 % (11.0-16.0); White Blood Count 16.5 X10*3/uL (4.8-10.8)
--- NOTE | 2024-04-04 09:04 | P.PNPL_ITS ---
Subjective Subjective Date of Service: 04/04/24 Interval history: The patient was seen on exam. Overall he is feeling well from a respiratory status. He has been on the vancomycin and Zosyn. His sputum culture did come back positive for Klebsiella. Is penicillin resistant. Therefore only getting partial treatment. I will switch him over to Levaquin. Will also request a chest x-ray. Send clear if he has a concomitant process. Will go ahead and get an x-ray and monitor him closely. If the patient has no improvement will require bronchoscopy. Otherwise would recommend continuing with the Levaquin for now and reassessing in the next 24:48 hours. Clinically he is doing good he has low appetite. He is trying to take p.o.. Objective Data Labs 04/04/24 08:09 04/04/24 06:00 Labs: Laboratory Results - last 24 hr 04/02/24 04/03/24 04/04/24 15:33 21:07 06:00 WBC RBC Hgb Hct MCV MCH MCHC RDW Plt Count MPV Absolute Nucleated RBC Nucleated RBC % (auto) Hold Purple Top SEE NOTE Creatinine 0.83 Estim Creat Clear Calc 66.3 Estimated GFR > 60 Random Vancomycin 10.0 L HIV 1&2 Ab/P24 Ag 4thGn Nonreactive 04/04/24 08:09 WBC 16.5 H RBC 2.75 L Hgb 8.1 L Hct 24.9 L MCV 90.5 MCH 29.5 MCHC 32.5 RDW 14.4 Plt Count 406 H MPV 8.8 L Absolute Nucleated RBC 0.000 Nucleated RBC % (auto) 0.0 Hold Purple Top Creatinine Estim Creat Clear Calc Estimated GFR Random Vancomycin HIV 1&2 Ab/P24 Ag 4thGn Microbiology Microbiology Results: Microbiology 03/31/24 05:42 Sputum - Expectorated Gram Stain - Final 03/31/24 05:42 Sputum - Expectorated Sputum Culture - Final Klebsiella oxytoca 03/30/24 18:55 Blood - Venous Blood Culture - Preliminary No growth after 48 hours. 03/30/24 19:03 Blood - Venous Blood Culture - Preliminary No growth after 48 hours. Review of Systems Constitutional: Reports fatigue, Reports increased appetite and Reports weight loss Denies mouth lesions Cardiovascular: Denies chest pain Respiratory: Reports cough, Denies hemoptysis and Denies wheezing Gastrointestinal: Denies abdominal pain Musculoskeletal: Reports no additional musculoskeletal complaints Endocrine: Reports fatigue Hematologic/Lymphatic: Denies lymphadenopathy Allergic/Immunologic: Denies wheezing Physical Exam 2 Vital Signs: Vital Signs: Last Vital Signs Temp 98.7 F 04/04/24 07:56 Pulse 89 04/04/24 08:26 Resp 16 04/04/24 08:26 BP 129/61 04/04/24 07:56 Pulse Ox 94 04/04/24 07:56 O2 Del Method Room Air 04/04/24 07:56 BMI result Body Mass Index 20.7 Const: General: cooperative HEENT: Head: Yes normal to inspection Face and sinus: Yes normal facial exam Mouth: Normal oral and palatal mucosa present Teeth and gingiva: d entition normal Eyes: General: appearance normal, both eyes and all related structures P upils: Equal, round and reactive pupils present Resp: Effort & Inspection: normal respiratory effort Auscultation: d iminished lung sounds Cardio: Rate: regular rate Rhythm: regular rhythm GI: Palpation (GI): Soft to palpation and nontender Skin: General skin exam: no rashes or lesions noted Neuro: General: moves all extremities Cranial nerves: Yes Equal, round and reactive pupils present Extrem: General: Yes normal to inspection Psych: Appearance: grossly normal Procedures Date of Service Date of Service: 04/04/24 Assessment and Plan Assessment and plan (1) COPD (chronic obstructive pulmonary disease): Status: Acute (2) Cavitating mass in right lower lung lobe: Status: Acute (3) Pneumonia involving right lung: Status: Acute Plan stop Zosyn Start Levaquin CXR monitor WBC count Consider bronchosocopy if no better Time Spent With Patient Time: Total time managing care of this patient today ____ minutes. Progress Note: Quality Stroke Does the patient have a stroke diagnosis?: No
[2024-04-04 09:13] LABS: Anion Gap 14 (12-20); Blood Urea Nitrogen 7 mg/dL (9-16); Calcium 7.6 mg/dL (8.4-10.2); Carbon Dioxide 21 mmol/L (22-29); Chloride 108 mmol/L (96-108); Creatinine Clr Calc Pharmacy 67.1; Estimated Glomerular Filt Rate > 60; Glucose Random 95 mg/dL (60-115); Sodium 139 mmol/L (135-145)
--- NOTE | 2024-04-04 09:24 | MHC.CLN ---
F/U DIET=REGULAR, CHOPPED. VARIABLE INTAKE AT MEALS, 0-100%, WITH MOST 25-50%. INCREASING SUPPLEMENT TO ENSURE TID (1050 KCALS, 60 G PROTEIN). MONITOR PO INTAKE AND ENCOURAGE SUPPLEMENT.
--- NOTE | 2024-04-04 09:29 | HO.PM.IMPN ---
Subjective Subjective Date of Service: 04/04/24 Interval History: seen and examined no new complaints Review of Systems Negative except HPI/interval history. Physical Exam Vital Signs: Vital Signs: Last Vital Signs Temp 98.7 F 04/04/24 07:56 Pulse 89 04/04/24 08:26 Resp 16 04/04/24 08:26 BP 129/61 04/04/24 07:56 Pulse Ox 94 04/04/24 07:56 O2 Del Method Room Air 04/04/24 07:56 BMI result Body Mass Index 20.7 Appearing in no acute distress lung sounds diminished heart regular rate rhythm, clear S1, S2 positive bowel sounds, abdomen is soft, nontender neuro patient is alert x3, no focal deficits Objective Data Active Medications Acetaminophen (Acetaminophen 325 Mg Tablet) 975 mg PO Q6H PRN PRN Reason: Pain, Mild (Pain Scale 1-3), fever or headache Last Admin: 03/31/24 02:25 Dose: 975 mg Documented By: ARIS Albuterol Sulfate (Albuterol Sulfate (0.083%) 2.5 Mg/3 Ml Vial.Neb) 2.5 mg INHALE Q3H PRN PRN Reason: Shortness of Breath/Wheezing Atorvastatin Calcium (Atorvastatin Calcium 40 Mg Tablet) 40 mg PO BEDTIME COUNT INCLUDES THE [facility] Last Admin: 04/03/24 21:56 Dose: 40 mg Documented By: XANDER Calcium Carbonate (Calcium Carbonate 750 Mg Tab.Chew) 750 mg PO Q4H PRN PRN Reason: Heartburn Finasteride (Finasteride 5 Mg Tablet) 5 mg PO DAILY COUNT INCLUDES THE [facility] Last Admin: 04/03/24 08:25 Dose: 5 mg Documented By: SHAZIA Fluticasone/Vilanterol (Fluticasone/Vilanterol 100/25 Blst.W.Dev) 1 puff INHALE RDAILY COUNT INCLUDES THE [facility] Last Admin: 04/04/24 08:24 Dose: 1 puff Documented By: LATESHA Guaifenesin (Guaifenesin 200 Mg/10 Ml 10 Ml Liquid) 10 ml PO Q6H PRN PRN Reason: Cough Last Admin: 04/03/24 21:57 Dose: 10 ml Documented By: XANDER Levofloxacin (Levaquin) 500 mg in 100 mls @ 100 mls/hr IV Q24H COUNT INCLUDES THE [facility] Magnesium Hydroxide (Milk Of Magnesia 30 Ml Oral.Susp) 30 ml PO DAILY PRN PRN Reason: Constipation Melatonin (Melatonin 3 Mg Tablet) 6 mg PO BEDTIME PRN PRN Reason: Insomnia Last Admin: 04/03/24 21:56 Dose: 6 mg Documented By: XANDER Pharmacy Consult (Consult Rx Vancomycin Dosing) 1 each MISCELLANE DAILY PRN PRN Reason: Consult order Sodium Chloride (0.9 % Sodium Chloride Flush 3 Ml Syringe) 3 ml IVFLUSH QSHIFT COUNT INCLUDES THE [facility] Last Admin: 04/03/24 23:47 Dose: 3 ml Documented By: XANDER Labs 04/04/24 08:09 04/04/24 08:07 Labs: Laboratory Results - last 24 hr 04/02/24 04/03/24 04/04/24 15:33 21:07 06:00 MCV MCH MCHC RDW Plt Count MPV Absolute Nucleated RBC Nucleated RBC % (auto) Hold Purple Top SEE NOTE Anion Gap Estim Creat Clear Calc 66.3 Estimated GFR > 60 Random Glucose Calcium Random Vancomycin 10.0 L HIV 1&2 Ab/P24 Ag 4thGn Nonreactive 04/04/24 04/04/24 08:07 08:09 MCV 90.5 MCH 29.5 MCHC 32.5 RDW 14.4 Plt Count 406 H MPV 8.8 L Absolute Nucleated RBC 0.000 Nucleated RBC % (auto) 0.0 Hold Purple Top Anion Gap 14 Estim Creat Clear Calc 67.1 Estimated GFR > 60 Random Glucose 95 Calcium 7.6 L Random Vancomycin HIV 1&2 Ab/P24 Ag 4thGn Microbiology Microbiology Results: Microbiology 03/31/24 05:42 Gram Stain - Final Sputum - Expectorated Sputum Culture - Final Klebsiella oxytoca Assessment and Plan (1) Cavitating mass in right lower lung lobe: Status: Acute Plan 73 yo M with a PMH of tobacco use who presented to [facility] [place] ED on 03/30 with unintentional weight loss, hemoptysis, shortness of breath and an ourpatient cxr which showed significant lung abnormalities. WOrk up in the ED was concerning for lung mass and post obstructive pneumonia. He has been admitted for further care. Pulmonary mass, infection vs malignancy post obstructive pneumonia with klebsiella oxytoca nasal MRSA negative, stopped vancomcyin continue zosyn pulm on board>eventual bronch, ? during this hospitalization T-spot negative HIV neg HypoK resolved Elevated PSA outpatient urology f/u COPD at baseline continue inhalers HLD statin Full Code DVT pptx - mechanical due to hemoptysis attending Dr. Welsh Quality Stroke Does the patient have a stroke diagnosis?: No VTE Prior VTE?: No VTE Risk Level:: Medical - moderate - high VTE Device Contraindication: N/A - Device Ordered VTE Drug Contraindication: Treatment Not Indicated
[2024-04-04 09:34] VITALS: BP 121/56; PULSE 92; RESP 14; TEMP 36.9; O2SAT 98
[2024-04-04] MEDS: levoFLOXacin/D5W 500 MG/100 ML PIGGYBACK 100 MG IV (10:12)
[2024-04-04] MEDS: Finasteride 5 MG TABLET PO (10:13)
[2024-04-04 16:00] VITALS: BP 133/63; PULSE 84; RESP 12; TEMP 36.8; O2SAT 96
--- NOTE | 2024-04-04 16:33 | P.CDIM_ITS ---
PROVIDER RESPONSE TEXT: To clarify, the appropriate diagnosis supported by the clinical indicators: Moderate QUERY TEXT: PHYSICIAN'S DOCUMENTATION REQUEST Date of Query: 03/31/2024 01:01 PM EDT Patient Name: Herman Sprague Admit Date: 03/31/2024 Dear Johanny Wilhelm, A review of the medical record indicates additional documentation may be needed. Please review below and update the documentation accordingly. Documentation includes the diagnosis of protein calorie malnutrition. Clinical nutrition note: patient with moderately [id number] malnutrition in the context of chronic illness. Recommend adding Ensure BID to increase KCALS. If possible, please provide additional specificity regarding the severity of the malnutrition using t he above information: Mild Moderate Severe Other (explain) Clinically unable to determine (explain) Thank you, Kathia Donahue, CCS, CDIS Use of terms such as suspected, likely, concern for, or probable (associated with a specific diagnosi s that is being evaluated, monitored, or treated as if it exists) are acceptable and can be coded in the inpatient se tting, when documented at the time of discharge. Please use your independent medical judgment in providing your response. THIS QUERY IS PART OF THE PERMANENT MEDICAL RECORD
[2024-04-04 19:28] VITALS: BP 131/56; PULSE 88; RESP 16; TEMP 37.1; O2SAT 97
[2024-04-04] MEDS: 0.9 % Sodium Chloride Flush 3 ML SYRINGE IVFLUSH (19:28)
[2024-04-04] MEDS: Atorvastatin Calcium 40 MG TABLET PO (19:28)
[2024-04-04] MEDS: Melatonin 3 MG TABLET 6 MG PO (21:47)
[2024-04-05 03:36] VITALS: BP 121/58; PULSE 82; RESP 16; TEMP 36.9; O2SAT 94
[2024-04-05 07:00] LABS: Creatinine Clr Calc Pharmacy 73.4; Estimated Glomerular Filt Rate > 60
[2024-04-05 07:52] VITALS: BP 127/60; PULSE 83; RESP 14; TEMP 36.8; O2SAT 96
[2024-04-05 08:04] VITALS: PULSE 83; RESP 14; O2SAT 96
[2024-04-05] MEDS: Fluticasone/Vilanterol 100/25 BLST.W.DEV 1 PUFF INHALE (08:04)
--- NOTE | 2024-04-05 08:37 | P.PNPL_ITS ---
Subjective Subjective Date of Service: 04/05/24 Interval history: Seen and examined. Doing better. Reports that he has been having some hemoptysis, but is getting better. Previously on zosyn, but the klebsiella was resistant to PCN. Now on Levaquin. CXR yesterday did look worse, we will repeat CXR tomorrow. Continue on IV Levaquin. Objective Data Labs 04/04/24 08:09 04/05/24 05:42 Labs: Laboratory Results - last 24 hr 03/31/24 04/04/24 04/04/24 05:03 08:07 08:09 WBC 16.5 H RBC 2.75 L Hgb 8.1 L Hct 24.9 L MCV 90.5 MCH 29.5 MCHC 32.5 RDW 14.4 Plt Count 406 H MPV 8.8 L Absolute Nucleated RBC 0.000 Nucleated RBC % (auto) 0.0 Hold Purple Top Sodium 139 Potassium 4.0 D Chloride 108 Carbon Dioxide 21 L Anion Gap 14 BUN 7 L Creatinine 0.82 Estim Creat Clear Calc 67.1 Estimated GFR > 60 Random Glucose 95 Calcium 7.6 L HIV Genotype TNP 04/05/24 05:42 WBC RBC Hgb Hct MCV MCH MCHC RDW Plt Count MPV Absolute Nucleated RBC Nucleated RBC % (auto) Hold Purple Top SEE NOTE Sodium Potassium Chloride Carbon Dioxide Anion Gap BUN Creatinine 0.75 Estim Creat Clear Calc 73.4 Estimated GFR > 60 Random Glucose Calcium HIV Genotype Microbiology Microbiology Results: Microbiology 03/30/24 19:03 Blood - Venous Blood Culture - Final No growth after 5 days. 03/31/24 05:42 Sputum - Expectorated Gram Stain - Final 03/31/24 05:42 Sputum - Expectorated Sputum Culture - Final Klebsiella oxytoca 03/30/24 18:55 Blood - Venous Blood Culture - Preliminary No growth after 48 hours. Review of Systems Constitutional: Reports fatigue, Reports increased appetite and Reports weight loss Denies mouth lesions Cardiovascular: Denies chest pain Respiratory: Reports cough, Reports hemoptysis and Denies wheezing Gastrointestinal: Denies abdominal pain Musculoskeletal: Reports no additional musculoskeletal complaints Endocrine: Reports fatigue Hematologic/Lymphatic: Denies lymphadenopathy Allergic/Immunologic: Denies wheezing Physical Exam 2 Vital Signs: Vital Signs: Last Vital Signs Temp 98.2 F 04/05/24 07:52 Pulse 83 07/16/24 08:04 Resp 14 04/05/24 08:04 BP 127/60 04/05/24 07:52 Pulse Ox 96 04/05/24 07:52 O2 Del Method Room Air 04/05/24 07:52 BMI result Body Mass Index 20.7 Const: General: cooperative HEENT: Head: Yes normal to inspection Face and sinus: Yes normal facial exam Mouth: Normal oral and palatal mucosa present Teeth and gingiva: d entition normal Eyes: General: appearance normal, both eyes and all related structures P upils: Equal, round and reactive pupils present Resp: Effort & Inspection: normal respiratory effort Auscultation: d iminished lung sounds Cardio: Rate: regular rate Rhythm: regular rhythm GI: Palpation (GI): Soft to palpation and nontender Skin: General skin exam: no rashes or lesions noted Neuro: General: moves all extremities Cranial nerves: Yes Equal, round and reactive pupils present Extrem: General: Yes normal to inspection Psych: Appearance: grossly normal Procedures Date of Service Date of Service: 04/05/24 Assessment and Plan Assessment and plan (1) COPD (chronic obstructive pulmonary disease): Status: Acute (2) Cavitating mass in right lower lung lobe: Status: Acute (3) Pneumonia involving right lung: Status: Acute Plan continue Levaquin CXR tomorrow 04/06 monitor WBC count Consider bronchosocopy if no better Time Spent With Patient Time: Total time managing care of this patient today ____ minutes. Progress Note: Quality Stroke Does the patient have a stroke diagnosis?: No
--- NOTE | 2024-04-05 09:15 | P.PNIM_ITS ---
Subjective Subjective Date of Service: 04/05/24 Interval History: seen and examined no new complaints Review of Systems Negative except HPI/interval history. Physical Exam 2 Vital Signs: Vital Signs: Last Vital Signs Temp 98.2 F 04/05/24 07:52 Pulse 83 04/05/24 08:04 Resp 14 04/05/24 08:04 BP 127/60 04/05/24 07:52 Pulse Ox 96 04/05/24 07:52 O2 Del Method Room Air 04/05/24 07:52 BMI result Body Mass Index 20.7 Appearing in no acute distress lung sounds are clear to auscultation heart regular rate rhythm, clear S1, S2 positive bowel sounds, abdomen is soft, nontender neuro patient is alert x3, no focal deficits Objective Data Active Medications Acetaminophen (Acetaminophen 325 Mg Tablet) 975 mg PO Q6H PRN PRN Reason: Pain, Mild (Pain Scale 1-3), fever or headache Last Admin: 03/31/24 02:25 Dose: 975 mg Documented By: ARIS Albuterol Sulfate (Albuterol Sulfate (0.083%) 2.5 Mg/3 Ml Vial.Neb) 2.5 mg INHALE Q3H PRN PRN Reason: Shortness of Breath/Wheezing Atorvastatin Calcium (Atorvastatin Calcium 40 Mg Tablet) 40 mg PO BEDTIME [facility] Last Admin: 04/04/24 19:28 Dose: 40 mg Documented By: ARIS Calcium Carbonate (Calcium Carbonate 750 Mg Tab.Chew) 750 mg PO Q4H PRN PRN Reason: Heartburn Finasteride (Finasteride 5 Mg Tablet) 5 mg PO DAILY [facility] Last Admin: 04/04/24 10:13 Dose: 5 mg Documented By: MALACHI Fluticasone/Vilanterol (Fluticasone/Vilanterol 100/25 Blst.W.Dev) 1 puff INHALE RDAILY [facility] Last Admin: 04/05/24 08:04 Dose: 1 puff Documented By: MARIE Guaifenesin (Guaifenesin 200 Mg/10 Ml 10 Ml Liquid) 10 ml PO Q6H PRN PRN Reason: Cough Last Admin: 04/03/24 21:57 Dose: 10 ml Documented By: XANDER Levofloxacin (Levaquin) 500 mg in 100 mls @ 100 mls/hr IV Q24H [facility] Last Infusion: 04/04/24 11:40 Dose: Infused Documented By: JOHANNA Magnesium Hydroxide (Milk Of Magnesia 30 Ml Oral.Susp) 30 ml PO DAILY PRN PRN Reason: Constipation Melatonin (Melatonin 3 Mg Tablet) 6 mg PO BEDTIME PRN PRN Reason: Insomnia Last Admin: 04/04/24 21:47 Dose: 6 mg Documented By: ARIS Pharmacy Consult (Consult Rx Vancomycin Dosing) 1 each MISCELLANE DAILY PRN PRN Reason: Consult order Sodium Chloride (0.9 % Sodium Chloride Flush 3 Ml Syringe) 3 ml IVFLUSH QSHIFT [facility] Last Admin: 04/04/24 19:28 Dose: 3 ml Documented By: ARIS Labs 04/04/24 08:09 04/05/24 05:42 Labs: Laboratory Results - last 24 hr 03/31/24 04/05/24 05:03 05:42 Hold Purple Top SEE NOTE Estim Creat Clear Calc 73.4 Estimated GFR > 60 HIV Genotype TNP Microbiology Microbiology Results: Microbiology 03/30/24 19:03 Blood Culture - Final Blood - Venous No growth after 5 days. Assessment and Plan (1) Cavitating mass in right lower lung lobe: Status: Acute Plan 73 yo M with a PMH of tobacco use who [place] [facility] [place] with unintentional weight loss, hemoptysis, shortness of breath and an ourpatient cxr which showed significant lung abnormalities. WOrk up in the ED was concerning for lung mass and post obstructive pneumonia. He has been admitted for further care. Pulmonary mass, infection vs malignancy post obstructive pneumonia with klebsiella oxytoca nasal MRSA negative, stopped vancomcyin pulm on board>eventual bronch, ? during this hospitalization, Klebsiella resistant to penicillin therefore switched abx to levaquin T-spot negative HIV neg HypoK resolved Elevated PSA outpatient urology f/u COPD at baseline continue inhalers HLD statin Full Code DVT pptx - mechanical due to hemoptysis attending Dr. Welsh Quality Stroke Does the patient have a stroke diagnosis?: No VTE Prior VTE?: No VTE Risk Level:: Medical - moderate - high VTE Device Contraindication: N/A - Device Ordered VTE Drug Contraindication: Treatment Not Indicated
[2024-04-05] MEDS: Finasteride 5 MG TABLET PO (09:19)
[2024-04-05] MEDS: 0.9 % Sodium Chloride Flush 3 ML SYRINGE IVFLUSH ×3 (09:20→21:22)
[2024-04-05] MEDS: levoFLOXacin/D5W 500 MG/100 ML PIGGYBACK 100 MG IV (09:20)
[2024-04-05 15:47] VITALS: BP 151/65; PULSE 68; RESP 14; TEMP 37.2; O2SAT 97
[2024-04-05 19:57] VITALS: BP 145/67; PULSE 83; RESP 18; TEMP 36.8; O2SAT 97
[2024-04-05] MEDS: Melatonin 3 MG TABLET 6 MG PO (21:21)
[2024-04-05] MEDS: Atorvastatin Calcium 40 MG TABLET PO (21:21)
[2024-04-06 03:33] VITALS: BP 129/65; PULSE 86; RESP 17; TEMP 36.7; O2SAT 95
[2024-04-06 06:56] LABS: Creatinine Clr Calc Pharmacy 76.5; Estimated Glomerular Filt Rate > 60
[2024-04-06 07:12] VITALS: BP 130/60; PULSE 81; RESP 16; TEMP 37.3; O2SAT 95
[2024-04-06] MEDS: Finasteride 5 MG TABLET PO (07:13)
[2024-04-06] MEDS: levoFLOXacin/D5W 500 MG/100 ML PIGGYBACK 100 MG IV (07:13)
[2024-04-06] MEDS: 0.9 % Sodium Chloride Flush 3 ML SYRINGE IVFLUSH ×2 (07:14→20:22)
[2024-04-06] MEDS: Fluticasone/Vilanterol 100/25 BLST.W.DEV 1 PUFF INHALE (08:00)
[2024-04-06 08:01] VITALS: PULSE 81; RESP 16; O2SAT 96
--- NOTE | 2024-04-06 08:55 | P.PNPL_ITS ---
Subjective Subjective Date of Service: 04/06/24 Interval history: The patient was seen on exam. No further hemoptysis. Tolerating the Levaquin well. Appetite is good. I did review his chest x-ray from today. Seems to be a little bit more organized in the areas of airspace disease have appeared to be more cavitated. Likely consistent necrotizing aspiration pneumonia. Responded well to the Levaquin at this point. Clinically he looks better. Will likely continue the Levaquin for couple weeks and repeat chest x-ray. If the patient is not demonstrating any significant improvement over developing any worsening symptoms at that point we can from a bronchoscopy patient follow-up closely with Pulmonary as an outpatient. Would recommend continue antibiotics IV for another day. Objective Data Labs 04/04/24 08:09 04/06/24 05:41 Labs: Laboratory Results - last 24 hr 04/06/24 05:41 Hold Purple Top SEE NOTE Creatinine 0.72 Estim Creat Clear Calc 76.5 Estimated GFR > 60 Microbiology Microbiology Results: Microbiology 03/31/24 08:30 Sputum - Induced Direct Acid Fast Bacilli Smear - Final 03/30/24 18:55 Blood - Venous Blood Culture - Final No growth after 5 days. 03/30/24 19:03 Blood - Venous Blood Culture - Final No growth after 5 days. 03/31/24 05:42 Sputum - Expectorated Gram Stain - Final 03/31/24 05:42 Sputum - Expectorated Sputum Culture - Final Klebsiella oxytoca Review of Systems Constitutional: Reports fatigue, Reports increased appetite and Reports weight loss Denies mouth lesions Cardiovascular: Denies chest pain Respiratory: Reports cough, Denies hemoptysis and Denies wheezing Gastrointestinal: Denies abdominal pain Musculoskeletal: Reports no additional musculoskeletal complaints Endocrine: Reports fatigue Hematologic/Lymphatic: Denies lymphadenopathy Allergic/Immunologic: Denies wheezing Physical Exam 2 Vital Signs: Vital Signs: Last Vital Signs Temp 99.2 F 04/06/24 07:12 Pulse 81 04/06/24 08:01 Resp 16 04/06/24 08:01 BP 130/60 04/06/24 07:12 Pulse Ox 95 04/06/24 07:12 O2 Del Method Room Air 04/06/24 07:12 BMI result Body Mass Index 20.7 Const: General: cooperative HEENT: Head: Yes normal to inspection Face and sinus: Yes normal facial exam Mouth: Normal oral and palatal mucosa present Teeth and gingiva: d entition normal Eyes: General: appearance normal, both eyes and all related structures P upils: Equal, round and reactive pupils present Resp: Effort & Inspection: normal respiratory effort Auscultation: d iminished lung sounds Cardio: Rate: regular rate Rhythm: regular rhythm GI: Palpation (GI): Soft to palpation and nontender Skin: General skin exam: no rashes or lesions noted Neuro: General: moves all extremities Cranial nerves: Yes Equal, round and reactive pupils present Extrem: General: Yes normal to inspection Psych: Appearance: grossly normal Procedures Date of Service Date of Service: 04/06/24 Assessment and Plan Assessment and plan (1) COPD (chronic obstructive pulmonary disease): Status: Acute (2) Cavitating mass in right lower lung lobe: Status: Acute (3) Pneumonia involving right lung: Status: Acute Plan continue Levaquin x 14 days monitor WBC count Consider bronchosocopy if worsens IV abx x 1 more day, then PO levaquin and f/u with outpt pulmonary Time Spent With Patient Time: Total time managing care of this patient today ____ minutes. Progress Note: Quality Stroke Does the patient have a stroke diagnosis?: No
--- NOTE | 2024-04-06 11:11 | MHC.CLN ---
F/U DIET=REGULAR, CHOPPED. INTAKE CONTINUES VARIABLE, 0-100%. MOST RECENT MEALS AT LEAST 50%. ENSURE TID (1050 KCALS, 60 G PROTEIN) TO INCREASE NUTRITIONAL INTAKE. MONITOR PO INTAKE AND ENCOURAGE SUPPLEMENT.
--- NOTE | 2024-04-06 12:47 | MHC.CM.PN ---
Per MD rounds patient not medically cleared for dc. CM will continue to follow.
--- NOTE | 2024-04-06 13:32 | P.PNIM_ITS ---
Subjective Subjective Date of Service: 04/06/24 Interval History: Being followed for cavitary mass in the right lower lung lobes/pneumonia. Patient feeling better denies hemoptysis, no shortness of breath, no fevers, no chills no acute events overnight. Review of Systems All other system reviewed and are negative. Physical Exam 2 Vital Signs: Vital Signs: Last Vital Signs Temp 99.2 F 04/06/24 07:12 Pulse 81 04/06/24 08:01 Resp 16 04/06/24 08:01 BP 130/60 04/06/24 07:12 Pulse Ox 95 04/06/24 07:12 O2 Del Method Room Air 04/06/24 07:12 BMI result Body Mass Index 20.7 Const: Other: General awake alert x3, in no acute distress. Anicteric sclera Neck no JVD. CVS regular rate rhythm, Respiratory lungs diminished breath sound, no respiratory distress, no wheeze, no rhonchi. Gastrointestinal abdomen soft, non tender, bowel sounds audible,. Extremities no edema. Neuro non focal Skin no rash Objective Data Active Medications Acetaminophen (Acetaminophen 325 Mg Tablet) 975 mg PO Q6H PRN PRN Reason: Pain, Mild (Pain Scale 1-3), fever or headache Last Admin: 03/31/24 02:25 Dose: 975 mg Documented By: ARIS Albuterol Sulfate (Albuterol Sulfate (0.083%) 2.5 Mg/3 Ml Vial.Neb) 2.5 mg INHALE Q3H PRN PRN Reason: Shortness of Breath/Wheezing Atorvastatin Calcium (Atorvastatin Calcium 40 Mg Tablet) 40 mg PO BEDTIME [facility] Last Admin: 04/05/24 21:21 Dose: 40 mg Documented By: SHANAE Calcium Carbonate (Calcium Carbonate 750 Mg Tab.Chew) 750 mg PO Q4H PRN PRN Reason: Heartburn Finasteride (Finasteride 5 Mg Tablet) 5 mg PO DAILY [facility] Last Admin: 04/06/24 07:13 Dose: 5 mg Documented By: АНДРЕЙ Fluticasone/Vilanterol (Fluticasone/Vilanterol 100/25 Blst.W.Dev) 1 puff INHALE RDAILY [facility] Last Admin: 04/06/24 08:00 Dose: 1 puff Documented By: JEN Guaifenesin (Guaifenesin 200 Mg/10 Ml 10 Ml Liquid) 10 ml PO Q6H PRN PRN Reason: Cough Last Admin: 04/03/24 21:57 Dose: 10 ml Documented By: XANDER Levofloxacin (Levaquin) 500 mg in 100 mls @ 100 mls/hr IV Q24H [facility] Last Infusion: 04/06/24 08:20 Dose: Infused Documented By: АНДРЕЙ Magnesium Hydroxide (Milk Of Magnesia 30 Ml Oral.Susp) 30 ml PO DAILY PRN PRN Reason: Constipation Melatonin (Melatonin 3 Mg Tablet) 6 mg PO BEDTIME PRN PRN Reason: Insomnia Last Admin: 04/05/24 21:21 Dose: 6 mg Documented By: SHANAE Pharmacy Consult (Consult Rx Vancomycin Dosing) 1 each MISCELLANE DAILY PRN PRN Reason: Consult order Sodium Chloride (0.9 % Sodium Chloride Flush 3 Ml Syringe) 3 ml IVFLUSH QSHIFT [facility] Last Admin: 04/06/24 07:14 Dose: 3 ml Documented By: АНДРЕЙ Labs 04/04/24 08:09 04/06/24 05:41 Labs: Laboratory Results - last 24 hr 04/06/24 05:41 Hold Purple Top SEE NOTE Estim Creat Clear Calc 76.5 Estimated GFR > 60 Microbiology Microbiology Results: Microbiology 03/31/24 08:30 Direct Acid Fast Bacilli Smear - Final Sputum - Induced 03/30/24 18:55 Blood Culture - Final Blood - Venous No growth after 5 days. Assessment and Plan (1) Cavitating mass in right lower lung lobe: Status: Acute Plan 73 yo M with a PMH of tobacco use who presented to [facility] [place] ED on 03/30 with unintentional weight loss, hemoptysis, shortness of breath and an ourpatient cxr which showed significant lung abnormalities. Work up in the ED was concerning for lung mass and post obstructive pneumonia. Pulmonary mass, post obstructive pneumonia with klebsiella oxytoca Repeat chest x-ray 04/06 pending Hemoptysis resolved, no fevers, no chills overall feeling better blood cultures x2 are negative, WBC trending down nasal MRSA negative, stopped vancomcyin Sputum culture grew Klebsiella resistant to penicillin therefore switched abx to levaquin T-spot negative HIV neg Since patient is making progress will continue antibiotics case discussed with pulmonology will discharge patient home on by mouth Levaquin with outpatient pulmonology follow-up for further workup HypoK resolved Elevated PSA outpatient urology f/u COPD No acute exacerbation noted ,continue inhalers HLD statin Full Code DVT pptx - mechanical due to hemoptysis Quality Stroke Does the patient have a stroke diagnosis?: No VTE Prior VTE?: No VTE Risk Level:: Medical - moderate - high VTE Device Contraindication: N/A - Device Ordered VTE Drug Contraindication: Treatment Not Indicated
[2024-04-06 15:35] VITALS: BP 137/63; PULSE 83; RESP 18; TEMP 36.8; O2SAT 96
[2024-04-06 19:22] VITALS: BP 138/63; PULSE 80; RESP 18; TEMP 36.7; O2SAT 95
[2024-04-06] MEDS: Atorvastatin Calcium 40 MG TABLET PO (20:21)
[2024-04-06] MEDS: Melatonin 3 MG TABLET 6 MG PO (21:47)
[2024-04-06 22:47] VITALS: RESP 18
[2024-04-07 03:47] VITALS: BP 131/63; PULSE 88; RESP 18; TEMP 36.5; O2SAT 97
[2024-04-07 06:06] LABS: Hematocrit 24.2 % (42.0-52.0); Hemoglobin 7.7 g/dl (14.0-18.0); Mean Corpuscular HGB Conc 31.8 g/dl (31.0-36.0); Mean Corpuscular Hemoglobin 29.7 pg (27.0-33.0); Mean Corpuscular Volume 93.4 fL (80.0-98.0); Mean Platelet Volume 8.8 fL (9.4-12.4); Platelet Count 420 X10*3/uL (160-400); Red Blood Count 2.59 X10*6/uL (4.60-5.80); Red Cell Distribution Width 15.6 % (11.0-16.0); White Blood Count 13.6 X10*3/uL (4.8-10.8)
[2024-04-07 06:21] LABS: Anion Gap 12 (12-20); Blood Urea Nitrogen 7 mg/dL (9-16); Calcium 8.2 mg/dL (8.4-10.2); Carbon Dioxide 25 mmol/L (22-29); Chloride 107 mmol/L (96-108); Creatinine Clr Calc Pharmacy 73.4; Estimated Glomerular Filt Rate > 60; Glucose Random 88 mg/dL (60-115); Sodium 140 mmol/L (135-145)
[2024-04-07] MEDS: 0.9 % Sodium Chloride Flush 3 ML SYRINGE IVFLUSH (07:08)
[2024-04-07 07:21] VITALS: BP 133/69; PULSE 81; RESP 16; TEMP 37.3; O2SAT 94
[2024-04-07 07:53] LABS: Iron 28 mcg/dL (45-160); Percent Iron Saturation 30 % (15-50); Total Iron Binding Capacity 92 mcg/dL (228-428); Unsaturated Iron Binding 64 ug/dL
[2024-04-07] MEDS: levoFLOXacin/D5W 500 MG/100 ML PIGGYBACK 100 MG IV (08:19)
[2024-04-07] MEDS: Finasteride 5 MG TABLET PO (08:19)
[2024-04-07] MEDS: Fluticasone/Vilanterol 100/25 BLST.W.DEV 1 PUFF INHALE (08:32)
[2024-04-07 08:33] VITALS: PULSE 79; RESP 16; O2SAT 95
--- NOTE | 2024-04-07 09:33 | P.PNPL_ITS ---
Subjective Subjective Date of Service: 04/07/24 Interval history: The patient was seen on exam. Doing well from a respiratory status. He is on room air. Cough is better. No hemoptysis. He is eating well. Wants to go home. I think it is reasonable to treat him for the course to clear any infectious components to his abnormal findings. We can always reimage as an outpatient and consider further diagnostic interventions based on the subsequent scans. So least from a respiratory status I do believe the patient is okay to go home. Will reach out to him to make sure he has a follow-up with the pulmonary office in 1-2 weeks. I also did leave a message with his son in order for them to understand in emphasize the importance of following up as an outpatient. Objective Data Labs 04/07/24 05:22 04/07/24 05:22 Labs: Laboratory Results - last 24 hr 04/07/24 05:22 WBC 13.6 H RBC 2.59 L Hgb 7.7 L Hct 24.2 L MCV 93.4 MCH 29.7 MCHC 31.8 RDW 15.6 Plt Count 420 H MPV 8.8 L Absolute Nucleated RBC 0.000 Nucleated RBC % (auto) 0.0 Sodium 140 Potassium 4.0 Chloride 107 Carbon Dioxide 25 Anion Gap 12 BUN 7 L Creatinine 0.75 Estim Creat Clear Calc 73.4 Estimated GFR > 60 Random Glucose 88 Calcium 8.2 L D Iron 28 L TIBC 92 L % Saturation 30 Unsat Iron Binding 64 Microbiology Microbiology Results: Microbiology 03/31/24 08:30 Sputum - Induced Direct Acid Fast Bacilli Smear - Final 03/30/24 18:55 Blood - Venous Blood Culture - Final No growth after 5 days. 03/30/24 19:03 Blood - Venous Blood Culture - Final No growth after 5 days. 03/31/24 05:42 Sputum - Expectorated Gram Stain - Final 03/31/24 05:42 Sputum - Expectorated Sputum Culture - Final Klebsiella oxytoca Review of Systems Constitutional: Reports fatigue, Reports increased appetite and Reports weight loss Denies mouth lesions Cardiovascular: Denies chest pain Respiratory: Reports cough, Denies hemoptysis and Denies wheezing Gastrointestinal: Denies abdominal pain Musculoskeletal: Reports no additional musculoskeletal complaints Endocrine: Reports fatigue Hematologic/Lymphatic: Denies lymphadenopathy Allergic/Immunologic: Denies wheezing Physical Exam 2 Vital Signs: Vital Signs: Last Vital Signs Temp 99.2 F 04/07/24 07:21 Pulse 79 04/07/24 08:33 Resp 16 04/07/24 08:33 BP 133/69 04/07/24 07:21 Pulse Ox 94 04/07/24 07:21 O2 Del Method Room Air 04/07/24 07:21 BMI result Body Mass Index 20.7 Const: General: cooperative HEENT: Head: Yes normal to inspection Face and sinus: Yes normal facial exam Mouth: Normal oral and palatal mucosa present Teeth and gingiva: d entition normal Eyes: General: appearance normal, both eyes and all related structures P upils: Equal, round and reactive pupils present Resp: Effort & Inspection: normal respiratory effort Auscultation: d iminished lung sounds Cardio: Rate: regular rate Rhythm: regular rhythm GI: Palpation (GI): Soft to palpation and nontender Skin: General skin exam: no rashes or lesions noted Neuro: General: moves all extremities Cranial nerves: Yes Equal, round and reactive pupils present Extrem: General: Yes normal to inspection Psych: Appearance: grossly normal Procedures Date of Service Date of Service: 04/07/24 Assessment and Plan Assessment and plan (1) COPD (chronic obstructive pulmonary disease): Status: Acute (2) Cavitating mass in right lower lung lobe: Status: Acute (3) Pneumonia involving right lung: Status: Acute Plan continue Levaquin x 14 days monitor WBC count F/U with outpt pulmonary in 1-2 weeks May need a bronchoscopy as outpt Time Spent With Patient Time: Total time managing care of this patient today ____ minutes. Progress Note: Quality Stroke Does the patient have a stroke diagnosis?: No
--- NOTE | 2024-04-07 11:13 | MHC.CM.PN ---
Per MD rounds patient medically cleared for dc home w/ [facility] for SN. [facility] will provide services. CM met with patient via office systems technology instructor. Patient agreeable to plan. Son to transport home after 1pm. RN aware. IMM delivered.
--- NOTE | 2024-04-07 12:24 | PM.DS ---
DS: Providers Provider Date of Service: 04/07/24 Date of admission: 03/30/24 22:35 Primary care physician: Antwon Peralta MD Consults: 03/30/24 22:40 Consult to Pulmonology Routine Consulting Provider: [facility] Pulmonology Services Reason for consultation: Right lung cavitary lesion, left upper lobe masslike area, hemoptysis Has provider been notified: No 03/30/24 22:56 Consult to Infectious Diseases Routine Consulting Provider: [facility] Infectious Disease [facility] Reason for consultation: right lung cavitary lesion Has provider been notified: No 03/30/24 23:08 Consult to Urology Routine Consulting Provider: [facility] Urology Services Reason for consultation: Elevated PSA Has provider been notified: No DS: Diagnosis Discharge Diagnosis (1) COPD (chronic obstructive pulmonary disease): Status: Acute (2) Cavitating mass in right lower lung lobe: Status: Acute (3) Pneumonia involving right lung: Status: Acute DS: Summary Hospital Course Hospital Course: History of presenting illness: Date of Service: 03/30/24 Attending physician on admission: Linnea Cox Chief Complaint: Shortness of breath Herman Sprague is a 73 years old man with past medical history significant for hypertension, COPD -not home O2 and hyperlipidemia presents to the emergency department complaining of 1 month history of shortness on breath that is worse on exertion associated with productive cough of blood-tinged sputum. He denies chest pain, headache, sore throat, fevers or chills. He reported weight loss, 20 lb over the last year and very poor appetite. Denied any acute gastrointestinal or genitourinary symptoms. He is a tobacco smoker since age 11, 1 per day -stopped smoking 2 weeks ago. He smokes marijuana as well and drinks alcohol occasionally. Denies illicit drug use. Denies history of TB, IV drug use, STDs, contact with sick people or incarceration as well as recent travel history. In the ED, he was found to have stable vital signs. Blood workup today showed leukocytosis of 34.1, hemoglobin of 9.6 and thrombocytosis of 555 with monocytosis. CRP is 28.93 and normal procalcitonin. There are no significant electrolyte imbalances. Creatinine is 1.07 and BUN 27. Troponin is 23.6. PSAs 12.83. Viral testing for COVID-19, influenza and RSV is negative. He underwent a chest CTA with IV contrast that showed marked emphysematous changes with soft tissue mass encasing the right mainstem bronchus with associated mediastinal and hilar lymph nodes with associated multifocal areas of consolidation in the right lower lobe with associated bronchial thickening and cavitary area, masslike area of infiltrate in the left upper lobe which is worrisome for malignancy as well as infection. ECG showed sinus tachycardia, heart rate 106 bpm with PVCs. ED tx: NS 1 L bolus, Zosyn 4.5 g IV and vancomycin 1.5 mg Hospital course: 73 yo M with a PMH of tobacco use who presented to [facility] ED on 03/30 with unintentional weight loss, hemoptysis, shortness of breath and an ourpatient cxr showed significant lung abnormalities. Work up in the ED was concerning for lung mass and post obstructive pneumonia, patient admitted with a diagnosis of cavitary Pulmonary mass, post obstructive pneumonia with hemoptysis patient treated initially with IV vancomycin and IV Zosyn, blood cultures x2 were negative, WBC gradually improved subsequently sputum culture grew Klebsiella resistant to penicillin , MRSA nares , HIV and T spot were negative therefore both vancomycin and Zosyn were discontinued and patient placed on IV Levaquin on April 04, patient improved clinically hemoptysis resolved has no further fevers, no chills overall feeling significantly better, was followed closely by furnishings conservator Dr. Wilhelm he recommend to discharge patient home on Levaquin and outpatient follow-up with pulmonology in 1-2 weeks. Patient noted to have no acute COPD exacerbation he is recommended to continue home inhalers, he had mild hypokalemia that was repleted and normalized In regard to Elevated PSA patient was seen by Urology and place on finasteride 5 mg daily recommend outpatient follow-up with Urology. Time Attestation Discharge Coordination Time (in mins): 40 Quality: Safe Use of Opioids Does Pt have an Active Cancer Diagnosis on the Problem List?: No Quality: Stroke Does the patient have a stroke diagnosis?: No Physical Exam Vital Signs: Vital Signs: Last Vital Signs Temp 99.2 F 04/07/24 07:21 Pulse 79 04/07/24 08:33 Resp 16 04/07/24 08:33 BP 133/69 04/07/24 07:21 Pulse Ox 94 04/07/24 07:21 O2 Del Method Room Air 04/07/24 07:21 BMI result Body Mass Index 20.7 Const: Other: General awake alert x3, in no acute distress. Anicteric sclera Neck no JVD. CVS regular rate rhythm, Respiratory lungs diminished breath sound, no respiratory distress, no wheeze, no rhonchi. Gastrointestinal abdomen soft, non tender, bowel sounds audible,. Extremities mild pitting edema. Neuro non focal Skin no rash DS: Data Data Completed and Pending Labs on day of discharge: Laboratory Results - last 24 hr 04/07/24 05:22 WBC 13.6 H RBC 2.59 L Hgb 7.7 L Hct 24.2 L MCV 93.4 MCH 29.7 MCHC 31.8 RDW 15.6 Plt Count 420 H MPV 8.8 L Absolute Nucleated RBC 0.000 Nucleated RBC % (auto) 0.0 Sodium 140 Potassium 4.0 Chloride 107 Carbon Dioxide 25 Anion Gap 12 BUN 7 L Creatinine 0.75 Estim Creat Clear Calc 73.4 Estimated GFR > 60 Random Glucose 88 Calcium 8.2 L D Iron 28 L TIBC 92 L % Saturation 30 Unsat Iron Binding 64 Discharge Plan Discharge Anticipated Discharge Date/Time: 04/07/24 10:37 Patient Disposition: Home Health Service Discharge Diagnosis: Cavitary mass and right lower lung Pneumonia Elevated PSA Referrals: [facility] [Outside] - 3-5 Days ([facility] will call you to schedule nursing appointments) Name,MD Antwon [Primary Care Provider] - 1 Week Discharge Medications: New finasteride 5 mg Tablet 5 mg PO DAILY Qty: 90 0RF levofloxacin 500 mg tablet 500 mg PO DAILY 7 Days Qty: 10 0RF Continued atorvastatin 40 mg tablet 40 mg PO BEDTIME albuterol sulfate 90 mcg/actuation HFA aerosol inhaler 2 inh inhalation Q6H PRN (Reason: dyspnea) fluticasone furoate-vilanterol [Breo Ellipta] 100-25 mcg/dose blister with device 1 ea inhalation DAILY Discharge Orders: Discharge Order (Routine); Ordered 04/07/24 Ordered By: Beverly Connors Diet: Advance to usual diet Activity on Discharge: As tolerated Stand Alone Forms: Patient Portal Discharge page Print Language: Kosovan Care Plan Goals: Take by mouth Levaquin 500 mg daily for 7 more days Continue finasteride 5 mg by mouth daily and follow-up with Urology Health Concerns: Hyperlipidemia Elevated PSA continue finasteride and follow-up with Urology Plan of Treatment: Outpatient follow-up with furnishings conservator Dr. Wilhelm in 1-2 weeks Outpatient follow-up with Urology Dr. Moy Villalobos call for appointment Follow-up with primary care physician call for appointment. Assessment: As above
--- NOTE | 2024-04-07 12:38 | P.F2F_ITS ---
Service Date Service Date: 04/07/24 Encounter Date of encounter: 04/07/24 Reasons for Services Signs and symptoms assessed: Shortness of breath, hemoptysis, weakness, weight loss Reason for nursing home: CV/CP assess and/or care and teach disease management Homebound: Leaving the home is medically contraindicated at this time without the asist of a device and/or another person due th the listed conditions above and below. Reason homebound: weakness related to hospital stay Certification: Based on the above findings, I certify that this patient is confined to the home and needs intermittent nursing home care, physical therapy and/or speech therapy, or continues to need occupational therapy. The patient is under my care, and I have initiated the establishment of the plan of care. The patient will be followed by a physician who will periodically review the plan of care. Time Spent With Patient Time: Total time managing care of this patient today ____ minutes.
== END 2024-04-07 12:57 | disposition home health service (06) | DRG 194 ==
LOC: HO.ED 22:05 → HO.EDOVER 22:43 → HO.S3 23:00
PROVIDERS: Family Medicine; Internal Medicine; Nurse Practitioner Acute Care; Physician Assistant Medical; Admitting Provider Internal Medicine; Emergency Provider Emergency Medicine; PCP Internal Medicine Geriatric Medicine; Visit Provider Hospitalist
DX: J18.9 Pneumonia, unspecified organism (principal); C34.01 Malignant neoplasm of right main bronchus; R04.2 Hemoptysis; J44.0 Chronic obstructive pulmonary disease with (acute) lower respiratory infection; J44.1 Chronic obstructive pulmonary disease with (acute) exacerbation; E44.0 Moderate protein-calorie malnutrition; Z16.11 Resistance to penicillins; B96.89 Other specified bacterial agents as the cause of diseases classified elsewhere; J98.4 Other disorders of lung; N40.0 Benign prostatic hyperplasia without lower urinary tract symptoms; E78.5 Hyperlipidemia, unspecified; Z68.20 Body mass index [BMI] 20.0-20.9, adult; Z20.822 Contact with and (suspected) exposure to COVID-19; Z87.891 Personal history of nicotine dependence; Z79.51 Long term (current) use of inhaled steroids; Z79.899 Other long term (current) drug therapy
CPT/HCPCS: 0241U; 36415; 71045; 71046; 71260; 80048; 80053; 80076; 80202; 81003; 82565; 83036; 83540; 83605; 83880; 84132; 84145; 84153; 84484; 85025; 85027; 86140; 86481; 87040; 87070; 87077; 87116; 87186; 87205; 87206; 87389; 87536; 87640; 87641; 87900; 92507; 92610; 93005; 93306; 94640; 99285; J1956; J2543; J3370; J3371; J3480; J7120; Q9957; Q9967

== ENCOUNTER → 2024-03-30 18:09 | Outpatient (BNV) | payer MEDICARE, MEDICAID, SELFPAY | PROVIDERS: Admitting Provider Internal Medicine; Emergency Provider Emergency Medicine; PCP Internal Medicine Geriatric Medicine; Visit Provider Internal Medicine Cardiovascular Disease | DX: R94.31 Abnormal electrocardiogram [ECG] [EKG] (principal) | CPT/HCPCS: 93010 ==

== ENCOUNTER 2024-03-30 22:35 | Outpatient (BNV) | payer MEDICARE, MEDICAID, SELFPAY | END 2024-03-31 07:00 | PROVIDERS: Admitting Provider Internal Medicine; Emergency Provider Emergency Medicine; PCP Internal Medicine Geriatric Medicine; Visit Provider Internal Medicine Cardiovascular Disease | DX: I35.8 Other nonrheumatic aortic valve disorders (principal) | CPT/HCPCS: 93306 ==

== ENCOUNTER → 2024-03-30 22:35 | Outpatient (BNV) | payer MEDICARE, MEDICAID, SELFPAY | PROVIDERS: Admitting Provider Internal Medicine; Emergency Provider Emergency Medicine; PCP Internal Medicine Geriatric Medicine; Visit Provider Internal Medicine | DX: J44.9 Chronic obstructive pulmonary disease, unspecified (principal); J98.4 Other disorders of lung; J18.9 Pneumonia, unspecified organism | CPT/HCPCS: 99223; 99233 ==

== ENCOUNTER → 2024-03-30 22:35 | Outpatient (BNV) | payer MEDICARE, MEDICAID, SELFPAY | PROVIDERS: Admitting Provider Internal Medicine; Emergency Provider Emergency Medicine; PCP Internal Medicine Geriatric Medicine; Visit Provider Internal Medicine | DX: J44.9 Chronic obstructive pulmonary disease, unspecified (principal); R63.4 Abnormal weight loss; J98.4 Other disorders of lung; J18.9 Pneumonia, unspecified organism | CPT/HCPCS: 99222 ==

== ENCOUNTER → 2024-03-30 22:35 | Outpatient (BNV) | payer MEDICARE, MEDICAID, SELFPAY | PROVIDERS: Admitting Provider Internal Medicine; Emergency Provider Emergency Medicine; PCP Internal Medicine Geriatric Medicine; Visit Provider Nurse Practitioner Acute Care | DX: J44.9 Chronic obstructive pulmonary disease, unspecified (principal); J98.4 Other disorders of lung; J18.9 Pneumonia, unspecified organism | CPT/HCPCS: 99223; 99232; 99233; 99239; G0180 ==

== ENCOUNTER 2024-04-15 13:28 | Outpatient (AMB) | payer MEDICARE, MEDICAID, SELFPAY ==
[2024-04-15 13:43] VITALS: BP 118/66; PULSE 95; O2SAT 98; BMI 20.1
--- NOTE | 2024-04-15 13:43 | MHC.OFFVIS ---
Vital Signs 04/15/24 13:43 Height 5 ft 7 in Weight 128 lb 8 oz BMI 20.1 BP 118/66 Blood Pressure Location Lt brachial Position Sitting Pulse 95 Pulse Source Pulse Oximeter Pulse Oximetry (%) 98 Oxygen Delivery Method Room Air Intake Visit Reasons: COPD/Cavitating Mass/Hops f/[place] ([facility] Off Track Betting Manager Name: [id number] Kendra Allergies No Known Allergies Allergy (Verified 04/15/24 13:50) HPI HPI COPD/Cavitating Mass/Hops f/up ([facility]): Details: Herman is a pleasant 73 year old male, recently quit smoking 1 month ago with 90 pack year history with underlying COPD, and HTN. He was referred by ED for pulmonary evaluation. He presented to ED on 03/30/24 with 20 lb unintentional weight loss over the last several months and recent productive cough with yellow sputum as well as hemoptysis for the prior month. Patient was admitted for cavitary pulmonary mass and post obstructive pneumonia. Initially he was treated with IV vancomycin and IV Zosyn, blood cultures x2 were negative, sputum culture grew Klebsiella resistant to penicillin , MRSA nares , HIV and T spot were negative therefore both vancomycin and Zosyn were discontinued. He was started on IV Levaquin on April 04, patient improved clinically with resolution of hemoptysis. He was discharged on 04/07 with 7 day course of Levaquin which he completed yesterday., for a total of 14 days. Since discharge he reports significant improvement in cough, now dry and denies hemoptysis. He reports improvements in dyspnea, chest tightness and wheezing however still persists. He has been maintained on Breo 100 mcg with suboptimal effect. He reports asthma since childhood, never requiring intubation. He denies prior hospitalizations related to respiratory symptoms. He denies any seasonal allergies. He denies any occupational exposures. He recently moved in with nephew who has a rabbit which seems to trigger respiratory symptoms. Denies allergy testing. [facility] Medical History Smoker COPD (chronic obstructive pulmonary disease) Tobacco dependence Hyperlipidemia BPH (benign prostatic hyperplasia) Essential hypertension Social History Household Members: None Housing: Apartment Do you presently have visiting nurse or other home services: No Patient Tobacco Use Status: Former Tobacco user Tobacco use type: Cigarette Second Hand Smoke Exposure: No service: No Review of Systems Const Denies chills, Denies excessive sweating, Denies fever(s), Denies headache(s) and Denies night sweats Eyes Denies dry eyes, Denies irritation and Denies itchy eyes ENT Reports Normal hearing present, Denies headache(s), Denies nasal congestion, Denies nasal discharge, Denies post nasal drip and Denies sore throat Card Denies chest pain, Denies chest pain at rest, Denies chest pain with activity, Denies claudication, Denies leg edema, Denies orthopnea and Denies paroxysmal nocturnal dyspnea Resp Denies chest congestion, Denies excessive phlegm production, Denies pain on inspiration, Denies pain with cough and Denies stridor Musc Denies myalgias Neuro Reports Normal hearing present and Denies headache(s) Endo Denies excessive sweating Sebastian/Lymph Denies lymphadenopathy Aller/Immun Denies itchy eyes and Denies seasonal rhinorrhea Physical Exam Vital Signs: Last Vital Signs Pulse 95 04/15/24 13:43 BP 118/66 04/15/24 13:43 Pulse Ox 98 04/15/24 13:43 Oxygen Delivery Method Room Air 04/15/24 13:43 BMI result Body Mass Index 20.1 Const General: cooperative, comfortable, no acute distress, well developed and alert Nutritional Appearance: thin Orientation/consciousness: patient oriented x3 Limitations: ambulation with cane HEENT Head: Yes normal to inspection, Yes normocephalic and Yes atraumatic Ears: hearing grossly normal bilaterally and external ears normal Eyes General: appearance normal, both eyes and all related structures Eyelids: Yes eyelids normal Sclerae: sclerae normal EOM: EOMs intact bilaterally Neck Neck: Yes normal visual inspection and Yes no lymphadenopathy Lymphatic: no lymphadenopathy noted Chest Chest palpation & inspection: normal inspection of the chest Resp Effort & Inspection: normal respiratory effort, able to speak in complete sentences, no audible wheezes, no cough, no stridor, not tachypneic, no tripod positioning and no use of accessory muscles Auscultation: no crackles, no rales, no rhonchi, no wheezes and diminished lung sounds Cardio Jugular venous distension: no JVD Rate: regular rate Rhythm: regular rhythm Skin Other: warm, dry General skin exam: no rashes or lesions noted Neuro General: patient oriented x3 Cranial nerves: Yes Normal hearing present Cognition (Neuro): normal cognition Extrem General: Yes normal to inspection, Yes capillary refill normal, Yes no clubbing, cyanosis or edema and Yes no pedal edema Psych Appearance: grossly normal and well kempt Speech and movement: Normal speech and movement present and Clear speech present Affect: normal affect Attitude: cooperative Thought process: Normal thought process present Thought content: Normal thought content present Insight: Good insight present (Psych) Judgement: Good judgement present (Psych) Results Reviewed Results Reviewed: [address] [address] [address] Scan Report Signed Patient: Herman Sprague MR#: [id number] : 1950 Acct:[id number] Age/Sex: 73 / M ADM Date: 03/30/24 Loc: .ED Attending Dr: Ordering Physician: Rony Sanon MD Date of Service: 03/30/24 Procedure(s): CT chest w IV con Accession Number(s): [id number] cc: Rony Sanon MD; Name,Antwon RICE~ EXAMINATION: CT CHEST WITH CONTRAST CLINICAL INFORMATION: Lung mass on prior chest radiograph COMPARISON: Chest radiograph 03/23/2024 TECHNIQUE: Multidetector volumetric CT imaging of the chest was obtained after the administration of 65 mL of Omnipaque 350 intravenous contrast without immediate adverse reactions. Axial MIP volume rendering provided. Sagittal and coronal reformatted images were obtained. This CT examination was performed using dose optimization techniques as appropriate, variously including the following: *Automated exposure control *Adjustment of mA and/or kV according to patient size (this includes techniques or standardized protocols for targeted exams where dose is matched to indication/reason for exam; i.e. extremities or head) *Use of iterative reconstruction technique DLP: 201 mGy-cm FINDINGS: LUNGS: Marked emphysematous changes are present throughout the lungs. Marked subpleural cystic changes are seen predominantly in the upper lobes there is one area of cyst thickening in the left upper lobe anteriorly (5:152). There are large multifocal areas of consolidation seen in the right lower lobe with associated marked bronchial thickening. There is cavitary area seen posterolaterally measuring 2.8 2.7 x 3 0.1 mL (5:241 and 7:78). Number of smaller nodular densities are seen including some tree-in-bud opacities. There is an area of masslike infiltrate present in the left upper lobe measuring 1.6 x 0.7 x 1.2 cm (5:181 and 6:27). Scattered pulmonary nodules are seen some related to bronchial is mucosal mucoid impaction with the largest nodule measuring 1 cm in the right middle lobe anterior to the major fissure (5:270 and 7:84). MEDIASTINUM: There is a large precarinal lymph node present measuring 3.0 x 2.1 x 3.7 cm (3:24 and 7:61). Some other smaller perihilar lymph nodes are present. There is encasement of the right mainstem bronchus by abnormal soft tissue mass measuring 4.2 x 2.2 x 2.0 cm (3:28 and 6:48). Marked coronary calcium is present. PLEURA: There is no pleural effusion. No pleural mass or thickening. AXILLA: No lymphadenopathy. UPPER ABDOMEN: A large right extrarenal pelvis is partially imaged. No adrenal masses are seen. No evidence of hepatic metastases. OSSEOUS STRUCTURES: No evidence of bony metastatic disease. CT/CT chest w IV con IMPRESSION: 1. Marked emphysematous changes with soft tissue mass encasing the right mainstem bronchus with associated mediastinal and hilar lymph nodes. There are associated multifocal areas of consolidation in the right lower lobe with associated bronchial thickening and a cavitary area. There is also a masslike area of infiltrate in the left upper lobe. Findings are worrisome for malignancy as well as infection. Pulmonary consultation and bronchoscopy recommended. 2. Other incidental findings as described above. Fleischner guidelines were followed. This critical result was discussed with Dr Sanon at 9:30 PM on the evening of the exam and it was ascertained that the content and urgency of the report was understood at the time of direct communication. Dictated By: Hong Garcia MD Signed By: <Electronically signed by Hong Garcia MD in OV> 03/30/242136 DD/ 26 TD/TT: Climatology Teacher: SS Assessment & Plan Assessment & Plan (1) COPD (chronic obstructive pulmonary disease): Code(s): J44.9 - Chronic obstructive pulmonary disease, unspecified Category: Medical (2) Smoker: Code(s): F17.200 - Nicotine dependence, unspecified, uncomplicated Category: Social Hx (3) Cavitating mass in right lower lung lobe: Code(s): J98.4 - Other disorders of lung Category: Medical (4) Pneumonia involving right lung: Code(s): J18.9 - Pneumonia, unspecified organism Category: Medical Qualifiers: Lung location: lower lobe of lung Pneumonia type: due to unspecified organism Qualified Code(s): J18.9 - Pneumonia, unspecified organism Plan Herman presents after recent [facility] [place] for post obstructive pneumonia and abnormal CT with RLL cavitary area measuring 2.8 2.7 x 3 0.1 mL , a masslike infiltrate present in the left upper lobe measuring 1.6 x 0.7 x 1.2 cm and enlargement of multiple lymph nodes. Since discharge patient reports notable improvement with completing 14 day course of Levaquin. Will send for CXR to assess for resolving pneumonia. He is aware if symptoms begin to worsen, he will call office and if he develops hemoptysis or respiratory distress to seek emergent care. Will also send for chest CT in 4 weeks. Once resolution of pneumonia will consider further testing to evaluate for possible underlying neoplastic process. In regards to respiratory regimen, will switch Breo to Trelegy and refill albuterol PRN. All questions were answered and patient is in agreement of plan. Will have close follow up to review symptoms, CXR and response to Trelegy. Orders: Orders XR chest 2V 04/15/24 J18.9 - Pneumonia, unspecified organism CT chest wo IV con 4 Weeks J18.9 - Pneumonia, unspecified organism Medications: New indtfvearfu-ojhsfzrja-iegiuqdt 200-62.5-25 mcg (Trelegy Ellipta) 1 inh inhalation DAILY 60 ea 6RF albuterol sulfate 90 mcg/actuation 2 puffs inhalation Q4-6H PRN 1 ea 3RF shortness of breath or wheezing Discontinued levofloxacin Discontinued Reason: Patient Completed Course 500 mg PO DAILY 7 days 10 tabs 0RF Coding Level of Care Code New Pt Level 4 (96251) Diagnoses COPD (chronic obstructive pulmonary disease) J44.9 Smoker F17.200 Cavitating mass in right lower lung lobe J98.4 Pneumonia of right lower lobe due to infectious organism J18.9 Lung location: lower lobe of lung Pneumonia type: due to unspecified organism
== END 2024-04-15 14:35 | disposition home or self-care (01) ==
PROVIDERS: PCP Internal Medicine Geriatric Medicine; Referring Provider Internal Medicine Geriatric Medicine; Visit Provider Nurse Practitioner Family
DX: J44.9 Chronic obstructive pulmonary disease, unspecified (principal); F17.200 Nicotine dependence, unspecified, uncomplicated; J98.4 Other disorders of lung; J18.9 Pneumonia, unspecified organism
CPT/HCPCS: 99204

== ENCOUNTER → 2024-04-15 13:28 | Outpatient (BNVA) | payer MEDICARE, MEDICAID, SELFPAY | PROVIDERS: PCP Internal Medicine Geriatric Medicine; Referring Provider Internal Medicine Geriatric Medicine; Visit Provider Nurse Practitioner Family | DX: J44.9 Chronic obstructive pulmonary disease, unspecified (principal); J98.4 Other disorders of lung; J18.9 Pneumonia, unspecified organism; R04.2 Hemoptysis; F17.200 Nicotine dependence, unspecified, uncomplicated | CPT/HCPCS: 99202 ==

== ENCOUNTER 2024-04-21 12:09 | Outpatient (REF) | payer MEDICARE, MEDICAID, SELFPAY ==
--- NOTE | ~2024-04-21 | XR_ITS ---
EXAMINATION: XR CHEST CLINICAL INFORMATION: Pneumonia. COMPARISON: 04/06/2024 TECHNIQUE: 2 views of the chest were obtained. FINDINGS: The left hemithorax is hyperexpanded. There has been mild interval improvement in right mid to lower lung consolidation. Small right pleural effusion is unchanged. Cardiac silhouette is stable. XR/XR chest 2V IMPRESSION: Mild interval improvement in right mid to lower lung consolidation. Persistent small right pleural effusion.
== END 2024-04-21 12:10 | disposition home or self-care (01) ==
LOC: HO.XRAY 12:09
PROVIDERS: PCP Nurse Practitioner Family; Visit Provider Nurse Practitioner Family
DX: J18.9 Pneumonia, unspecified organism (principal)
CPT/HCPCS: 71046

== ENCOUNTER 2024-04-29 10:14 | Emergency (ER) | payer MEDICARE, MEDICAID, SELFPAY ==
--- NOTE | ~2024-04-29 | XR_ITS ---
EXAMINATION: XR CHEST CLINICAL INFORMATION: Cough with blood in the mucus. COMPARISON: Chest radiograph 04/21/2024. TECHNIQUE: Frontal view of the chest was obtained. FINDINGS: Stable cardiomediastinal silhouette. Unchanged hazy and consolidative airspace opacities projecting over the right mid to lower lung giles. Stable right greater than left biapical subpleural thickening. Slightly increased diffuse interstitial coarsening. Suggestion of new nodular-like opacity with internal lucency projecting over the right upper lung field measuring 2.2 cm. Stable small right pleural effusion. No pneumothorax. No acute osseous findings. XR/XR chest 1V IMPRESSION: 1. New nodular-like opacity with possible internal necrosis/cavitation projecting over the right upper lung field, recommend correlation with CT chest. 2. Increased diffuse interstitial coarsening, nonspecific may reflect infectious/inflammatory changes and some degree of pulmonary edema. 3. Stable consolidative opacities overlying the right mid to lower lung field. 4. Unchanged trace right pleural fluid.
--- NOTE | ~2024-04-29 | CT_ITS ---
EXAMINATION: CT ANGIOGRAM OF THE CHEST WITH AND WITHOUT CONTRAST (CT PULMONARY ANGIOGRAM FOR PE) CLINICAL INFORMATION: Reason for Exam cavitary lesion to chest coughing up blood COMPARISON: Chest x-ray April 29, 2024. CT chest March 30, 2024 TECHNIQUE: Prior to contrast administration, noncontrast localization images were obtained. Subsequently, multidetector volumetric imaging was performed from the thoracic inlet to below the diaphragms following the administration of 65 mL Omnipaque 350 intravenous contrast. No contrast reaction reported Sagittal, coronal, and MIP oblique sagittal reformatted images were obtained on the CT workstation, uploaded to PACS, and reviewed. This CT examination was performed using dose optimization techniques as appropriate, variously including the following: *Automated exposure control *Adjustment of mA and/or kV according to patient size (this includes techniques or standardized protocols for targeted exams where dose is matched to indication/reason for exam; i.e. extremities or head) *Use of iterative reconstruction technique Total exam dose-length product 186 mGy-cm FINDINGS: QUALITY OF STUDY/CONTRAST BOLUS: Satisfactory. PULMONARY ARTERIES: No pulmonary emboli. THORACIC AORTA: No aneurysm. Small volume of vascular calcifications of the aortic wall. LUNG: Marked emphysematous change of lungs. There is centrilobular and paraseptal emphysematous change. Subpleural blebs most pronounced at lung apices. There is associated pleural parenchymal scarring at both lung apices. Redemonstration of previously seen cavitary lesion posterior pleural-based right lower lobe. This is similar in size prior study. Cavity measures 2.5 cm superior-inferior sagittal image 77. This lung cavity is now air-filled without air-fluid level. The surrounding groundglass airspace disease. There is increasing dense consolidated masslike region of the anterior right lower lobe along the major fissure. There is an adjacent pleural-based nodule in the right upper lobe measuring 8 mm axial image 33/61 series 5. A rounded masslike lesion measuring 1 cm in right lower lobe image 35 series 5. There is also a rounded mass like density measuring 1 cm on image 40 in the right lower lobe . All 3 of these lesions previously measured between 7 and 9 mm on prior CAT scan. There is a subpleural nodule right upper lobe measuring 4 mm on image 23 series 5. This is similar to prior CAT scan. In the left lung the previously noted nodular airspace opacity in the left upper lobe is less distinct on the current exam. This now is a linear groundglass like opacity measuring about 1.5 cm in length by 0.5 cm in width. Axial image 25/61 series 5. There is also a smaller groundglass opacity in the left perihilar lung on image 33 series 5. PLEURA: No pleural effusion or pneumothorax. MEDIASTINUM: Redemonstration of right hilar or mediastinal lymphadenopathy. Narrowing of the right mainstem bronchus and secondary branches of the right bronchus and right hilar mass. Large precarinal lymph node measuring 2 cm in short axis diameter. Heart size is normal. No pericardial effusion. No evidence of septal bowing or right heart strain. CORONARY ARTERY CALCIFICATION: Moderate volume of coronary calcifications. CHEST WALL/AXILLA: No axillary or internal mammary lymphadenopathy. OSSEOUS STRUCTURES: No acute or suspicious osseous abnormality. UPPER ABDOMEN: Unremarkable. No reflux of contrast into the hepatic veins to suggest elevated right heart pressures. CT/CT angio chest PE protocol IMPRESSION: 1. No evidence of pulmonary embolism. 2. Marked emphysematous change of lungs. 3. Redemonstration of the cavitary lesion in the right lower lobe. 4. Increasing size of the right hilar and mediastinal lymphadenopathy. 5. Increasing size of the right lower lobe masslike consolidation. 6. Previously noted left upper lobe nodular airspace opacity is less distinct on the current exam. 7. There are additional bilateral lung nodules which have increased in size since prior CAT scan March 30, 2024. VTE: negative.
[2024-04-29 10:17] VITALS: BP 124/102; PULSE 88; RESP 20; TEMP 36.8; O2SAT 96; BMI 18.6
[2024-04-29 10:46] LABS: MANUAL DIFF FLAG NO
[2024-04-29 10:50] LABS: Basophils Absolute Auto 0.1 X10*3/uL (0.0-0.2); Basophils Percent Auto 0.4 % (0-2); Eosinophils Absolute Auto 0.2 X10*3/uL (0.0-0.4); Eosinophils Percent Auto 1.6 % (0-4); Hematocrit 38.8 % (42.0-52.0); Hemoglobin 12.2 g/dl (14.0-18.0); Imm Gran Abs Auto 0.05 X10*3/uL (0.00-0.03); Imm Gran Pct Auto 0.4 % (0.0-0.4); Lymphocytes Absolute Auto 1.9 X10*3/uL (1.2-4.9); Lymphocytes Percent Auto 15.9 % (20-40); Mean Corpuscular HGB Conc 31.4 g/dl (31.0-36.0); Mean Corpuscular Hemoglobin 30.3 pg (27.0-33.0); Mean Corpuscular Volume 96.5 fL (80.0-98.0); Monocytes Absolute Auto 1.1 X10*3/uL (0.1-1.2); Monocytes Percent Auto 9.6 % (2-11); Neutrophils Absolute Auto 8.6 x10*3/uL (2.0-8.3); Neutrophils Percent Auto 72.1 % (45-73); Platelet Count 315 X10*3/uL (160-400); Red Blood Count 4.02 X10*6/uL (4.60-5.80); Red Cell Distribution Width 14.8 % (11.0-16.0); White Blood Count 11.9 X10*3/uL (4.8-10.8)
[2024-04-29 11:12] LABS: Alanine Aminotransferase 13 U/L (0-40); Albumin Level 3.6 g/dL (3.5-5.0); Alkaline Phosphatase 106 U/L (39-117); Anion Gap 13 (12-20); Aspartate Amino Transferase 22 U/L (5-37); Bilirubin Total 0.4 mg/dL (0.0-1.0); Blood Urea Nitrogen 11 mg/dL (9-16); Calcium 9.6 mg/dL (8.4-10.2); Carbon Dioxide 25 mmol/L (22-29); Chloride 104 mmol/L (96-108); Creatinine Clr Calc Pharmacy 55.2; Estimated Glomerular Filt Rate > 60; Glucose Random 114 mg/dL (60-115); Potassium 3.7 mmol/L (3.3-5.1); Sodium 138 mmol/L (135-145); Total Protein 7.7 g/dL (6.5-8.0)
[2024-04-29 11:32] LABS: Influenza A PCR NEGATIVE (Negative); Influenza B PCR NEGATIVE (Negative); Resp Syncy Virus RNA Qual PCR NEGATIVE (Negative); SARS COV2 PCR INHOUSE NEGATIVE (Negative)
[2024-04-29] MEDS: 0.9 % Sodium Chloride 1,000 ML 999 ML IV (12:40)
--- NOTE | 2024-04-29 12:47 | ED_ITS ---
HPI - General Adult General Chief complaint: General Medical Stated complaint: coughing blood Time Seen by Provider: 04/29/24 12:01 Source: patient Mode of arrival: ambulatory Limitations: no limitations History of Present Illness HPI narrative: 20-year-old male past medical history of COPD smoker CTA with IV contrast that showed marked emphysematous changes with soft tissue mass encasing the right mainstem bronchus with associated mediastinal and hilar lymph nodes with associated multifocal areas of consolidation in the right lower lobe with associated bronchial thickening and cavitary area, masslike area of infiltrate in the left upper lobe which is worrisome for malignancy as well as infection. Approximately 2 weeks ago patient was admitted on Zosyn and vancomycin. Patient was discharged home on levofloxacin he returns today complaining of cough with blunted sputum and shortness of breath Related Data Home Medications ?Medication ?Instructions ?Recorded ?Confirmed albuterol sulfate 90 mcg/actuation 2 inh inhalation Q6H PRN dyspnea 03/31/24 03/31/24 aerosol inhaler atorvastatin 40 mg tablet 40 mg PO BEDTIME 03/31/24 03/31/24 Previous Rx's ?Medication ?Instructions ?Recorded finasteride 5 mg tablet 5 mg PO DAILY #90 tabs 04/07/24 albuterol sulfate 90 mcg/actuation 2 puff inhalation Q4-6H PRN 04/15/24 aerosol inhaler shortness of breath or wheezing #1 ea fluticasone fur. 200 mcg-umeclid 1 inh inhalation DAILY #60 ea 04/15/24 62.5 mcg-vilant 25 mcg inhalat.powder (Trelegy Ellipta) Allergies Allergy/AdvReac Type Severity Reaction Status Date / Time No Known Allergies Allergy Verified 04/29/24 10:23 Review of Systems 2 Review of Systems: Review of systems: General: Patient denies any fever chills recent illness or falls Musculoskeletal: Denies back pain or body aches or other injuries HEENT: denies headache, runny nose, ear pain Respiratory: denies shortness of breath, cough Cardiovascular: no chest pain or palpitations : denies dysuria, frequency Abdomen: no nausea vomiting denies abdominal pain Extremities: no swelling, no pain Skin: no diaphoresis Yes all other systems are reviewed and are negative PMFSH Past Medical History Medical History Smoker COPD (chronic obstructive pulmonary disease) Tobacco dependence Hyperlipidemia BPH (benign prostatic hyperplasia) Essential hypertension Social History Social History Household Members: None Housing: Apartment Do you presently have visiting nurse or other home services: No Patient Tobacco Use Status: Former Tobacco user Tobacco use type: Cigarette Smoked in Last 30 Days: No Second Hand Smoke Exposure: No Use of substances other than those prescribed or required for medical reasons: No Advance Directives: No Advance Directives Information Provided: Yes Do you have a plan to hurt others: No Plan service: No Physical Exam ED Vital Signs: Vital Signs - 24 hr 04/29/24 10:17 04/29/24 14:55 Temperature 98.3 F Pulse Rate 88 96 Respiratory Rate 20 12 Blood Pressure 124/102 H 142/79 H Pulse Oximetry 96 97 Oxygen Delivery Method Room Air Room Air BMI result Body Mass Index 18.6 General: Well-appearing well-nourished in no signs of distress HEENT: Normocephalic atraumatic Neck: No signs of JVD, no masses no tenderness or lymphadenopathy Cardiovascular: Regular rate and rhythm Respiratory: Clear to auscultation bilaterally Abdomen: Soft nontender no masses Extremities: Normal pedal pulses no signs of edema Skin: Dry warm no rashes Back: No tenderness full ROM Course Course Course Narrative: 1533 patient will be signed out pending CTA chest labs are unremarkable to Medications Administered Discontinued Medications Generic Name Dose Route Start Last Admin Trade Name Freq PRN Reason Stop Dose Admin Sodium Chloride 1,000 mls @ 999 mls/hr 04/29/24 12:15 04/29/24 13:57 Ns IV 04/29/24 13:15 Infused .Q1H1M YRN Infusion Iohexol 100 ml 04/29/24 13:34 04/29/24 13:34 Iohexol 350 Mg/Ml 100 Ml Infus..Btl IV 04/29/24 13:35 65 ml ONCE ONE Administration Medical Decision Making Medical Decision Making [facility] Narrative: I will send the patient over for a CTA again check labs and reassess give something for the cough Differential Diagnosis Differential Diagnoses: The differential diagnosis associated with the presentation includes Likely still due to cancer PE can not be ruled out he is not hypoxic ACS I will send the differential Admission/Observation Consideration of admission/observation: Escalation of care including admission/observation considered Consult Healthcare Provider Management of the patient was discussed with: Hospitalist Lab Data MDM Lab Attestation statement: I reviewed the patient's lab results. 04/29/24 10:42 04/29/24 10:42 Labs: Lab Results 04/29/24 04/29/24 Range/Units 10:42 12:41 WBC 11.9 H (4.8-10.8) X10*3/uL RBC 4.02 L D (4.60-5.80) X10*6/uL Hgb 12.2 L D (14.0-18.0) g/dl Hct 38.8 L D (42.0-52.0) % MCV 96.5 (80.0-98.0) fL MCH 30.3 (27.0-33.0) pg MCHC 31.4 (31.0-36.0) g/dl RDW 14.8 (11.0-16.0) % Plt Count 315 (160-400) X10*3/uL MPV 9.0 L (9.4-12.4) fL Immature Gran % (Auto) 0.4 (0.0-0.4) % Neut % (Auto) 72.1 (45-73) % Lymph % (Auto) 15.9 L (20-40) % Chase % (Auto) 9.6 (2-11) % Eos % (Auto) 1.6 (0-4) % Baso % (Auto) 0.4 (0-2) % Lymph # (Auto) 1.9 (1.2-4.9) X10*3/uL Chase # (Auto) 1.1 (0.1-1.2) X10*3/uL Eos # (Auto) 0.2 (0.0-0.4) X10*3/uL Baso # (Auto) 0.1 (0.0-0.2) X10*3/uL Abs Immat Gran (auto) 0.05 H (0.00-0.03) X10*3/uL Absolute Neuts (auto) 8.6 H (2.0-8.3) x10*3/uL Absolute Nucleated RBC 0.000 (0.0-0.012) X10*3/uL Nucleated RBC % (auto) 0.0 (0.0-0.2) /100WBC PT Cancelled INR Cancelled Sodium 138 (135-145) mmol/L Potassium 3.7 (3.3-5.1) mmol/L Chloride 104 (96-108) mmol/L Carbon Dioxide 25 (22-29) mmol/L Anion Gap 13 (12-20) BUN 11 (9-16) mg/dL Creatinine 0.92 (0.5-1.4) mg/dL Estim Creat Clear Calc 55.2 Estimated GFR > 60 Random Glucose 114 (60-115) mg/dL Calcium 9.6 D (8.4-10.2) mg/dL Total Bilirubin 0.4 (0.0-1.0) mg/dL AST 22 (5-37) U/L ALT 13 (0-40) U/L Alkaline Phosphatase 106 (39-117) U/L Total Protein 7.7 (6.5-8.0) g/dL Albumin 3.6 (3.5-5.0) g/dL Urine Color Yellow Urine Appearance Clear Urine pH 5.5 (5.0-9.0) Ur Specific [place] 1.015 (1.005-1.025) Urine Protein Negative (Neg-Trace) mg/dL Urine Glucose (UA) Negative (Negative) mg/dL Urine Ketones Negative (Negative) mg/dL Urine Blood Negative (Negative) Urine Nitrite Negative (Negative) Ur Leukocyte Esterase Negative (Negative) Influenza Type A (PCR) NEGATIVE (Negative) Influenza Type B (PCR) NEGATIVE (Negative) RSV RNA Qual (PCR) NEGATIVE (Negative) SARS-CoV-2 RNA (RT-PCR) NEGATIVE (Negative) Independent Interpretation I performed an independent interpretation of an: EKG and CT Scan Radiology Impression Discussion of test interpretation with radiology: I have reviewed the radiologist's reading. External Record Review External record reviewed: Inpatient record, Office record, Outpatient record and Prior outpatient labs Chronic Conditions Patient?s care impacted by: Hypertension and Cancer Social Determinants Patient?s care significantly limited by Social Determinants of Health including: Problems related to primary support group Discharge Plan Discharge Clinical Impression: Hematemesis Patient Disposition: Still a Patient Prescriptions: No Action atorvastatin 40 mg tablet 40 mg PO BEDTIME albuterol sulfate 90 mcg/actuation HFA aerosol inhaler 2 inh inhalation Q6H PRN (Reason: dyspnea) finasteride 5 mg Tablet 5 mg PO DAILY Qty: 90 0RF Trelegy Ellipta 200-62.5-25 mcg blister with device 1 inh inhalation DAILY Qty: 60 6RF albuterol sulfate 90 mcg/actuation HFA aerosol inhaler 2 puff inhalation Q4-6H PRN (Reason: shortness of breath or wheezing) Qty: 1 3RF Print Language: Palauan
[2024-04-29 12:48] LABS: Appearance Urine Clear; Color Urine Yellow; Glucose Urine UA Negative (Negative); Leukocyte Esterase Urine Negative (Negative); Nitrite Urine Negative (Negative); PH 5.5 (5.0-9.0); Specific Gravity - Urine 1.015 (1.005-1.025); Urine Blood Negative (Negative); Urine Ketones Negative (Negative); Urine Protein Negative (Neg-Trace)
[2024-04-29] MEDS: iohexoL 350 MG/ML 100 ML INFUS..BTL IV (13:34)
[2024-04-29 14:55] VITALS: BP 142/79; PULSE 96; RESP 12; O2SAT 97
--- NOTE | 2024-04-29 17:16 | PC.NURSE ---
Patient wanting to go home, CT scan resulted, provider made aware, will speak with patient, patient made aware provider will be returning soon, thanked them for their patience.
[2024-04-29 18:08] VITALS: BP 169/94; PULSE 80; RESP 22; O2SAT 97
[2024-04-29 18:50] VITALS: BP 170/82; PULSE 83; RESP 14; TEMP 36.3; O2SAT 97
[2024-04-29 19:44] VITALS: BP 181/85; PULSE 84; RESP 16; TEMP 36.8; O2SAT 96
== END 2024-04-29 19:45 | disposition home or self-care (01) ==
PROVIDERS: Student in an Organized Health Care Education/Training Program; Emergency Provider Emergency Medicine Emergency Medical Services; PCP Nurse Practitioner Family
DX: K92.0 Hematemesis (principal); R05.9 Cough, unspecified; R06.02 Shortness of breath; Z03.818 Encounter for observation for suspected exposure to other biological agents ruled out; I10 Essential (primary) hypertension; E78.5 Hyperlipidemia, unspecified; J44.9 Chronic obstructive pulmonary disease, unspecified; Z87.891 Personal history of nicotine dependence; Z79.899 Other long term (current) drug therapy; Z79.02 Long term (current) use of antithrombotics/antiplatelets
CPT/HCPCS: 0241U; 36415; 71045; 71275; 80053; 81003; 85025; 85610; 96360; 99284; Q9967